=== PATIENT | male | born 1985 | race Caucasian/White ===

== ENCOUNTER 2025-10-01 06:56 | Inpatient (IN) | payer MEDICAID, OTHER ==
[~2025-10-01] VITALS: Ht 175.3 cm; Wt 105.8 kg
--- NOTE | 2025-10-01 07:31 | ED.PDOC ---
General HPI Comments 39 year old male PMHx kdarthur stones presents to the ED with a chief complaint of abdominal pain onset today (10/01/25) around 02:00. Patient states he woke up experiencing lower abdominal pain/pelvic pain, described as a sharp pain. Patient states he has experienced kidney stones in the past, pain is different. Denies nausea, vomiting, diarrhea, blood in stool, melena, hematemesis, dysuria, hematuria, fever, chills. No other symptoms or modifying factors present at this time. Chief Complaint: Abdominal Pain Time Seen by MD: 07:25 Primary Care Provider: DENIES Reviewed notes: Medications, Allergies Allergies: Coded Allergies: NO KNOWN ALLERGIES (Unverified , 02/27/13) Information Source: Patient Mode of Arrival: Ambulatory Severity: Moderate Timing: Hours Duration: Since onset Prehospital treatment: None Onset: Spontaneous Symptoms: Other History of: Kidney stone Location: Suprapubic Penile discharge: None Modifying factors: None Past Medical History PAST MEDICAL HISTORY: Kidney Stones Surgical History: Denies all surgeries Family History Family History: Unknown Social History Smoker: Cigarettes Alcohol: Occasionally Drugs: Marijuana Lives In: Homeless Constitutional: denies: chills, diaphoresis, fatigue, fever, malaise, sweats, weakness, others EENTM: denies: blurred vision, double vision, ear bleeding, ear discharge, ear drainage, ear pain, ear ringing, eye pain, eye redness, hearing loss, mouth pain, mouth swelling, nasal discharge, nose bleeding, nose congestion, nose pain, photophobia, tearing, throat pain, throat swelling, voice changes, others Respiratory: denies: cough, hemoptysis, orthopnea, SOB at rest, shortness of breath, SOB with excertion, stridor, wheezing, others Cardiovascular: denies: chest pain, dizzy spells, diaphoresis, Dyspnea on exertion, edema, irregular heart beat, left arm pain, lightheadedness, palpitations, PND, syncope, others Gastrointestinal: reports: abdominal pain (lower abdomen); denies: abdomen distended, blood streaked bowels, constipated, diarrhea, dysphagia, difficulty swallowing, hematemesis, melena, nausea, poor appetite, poor fluid intake, rectal bleeding, rectal pain, vomiting, others Genitourinary: reports: pain (suprapubic); denies: burning, dysuria, flank pain, frequency, hematuria, incontinence, penile discharge, penile sore, testicle pain, testicle swelling, urgency, others Neurological: denies: dizziness, fainting, headache, left sided numbness, left sided weakness, numbness, paresthesia, pre-existing deficit, right sided numbness, right sided weakness, seizure, speech problems, tingling, tremors, weakness, others Musculoskeletal: denies: back pain, gout, joint pain, joint swelling, muscle pain, muscle stiffness, neck pain, others Integumetry: denies: bruises, change in color, change in hair/nails, dryness, laceration, lesions, lumps, rash, wounds, others Allergic/Immunocompromised: denies: Difficulty Healing, Frequent Infections, Hives, Itching, others Hematologic/Lymphatic: denies: anemia, blood clots, easy bleeding, easy bruising, swollen glands, others Endocrine: denies: excessive hunger, excessive sweating, excessive thirst, excessive urination, flushing, intolerance to cold, intolerance to heat, unexplained weight gain, unexplained weight loss, others Psychiatric: denies: anxiety, bipolar disorder, depression, hopeless, panic disorder, schizophrenia, sleepless, suicidal, others All Other Systems: Reviewed and Negative Physical Exam General Appearance: Normal HEENT: Normal ENT Inspection, Pharynx Normal, TMs Normal Neck: Full Range of Motion, Non-Tender, Normal, Normal Inspection Respiratory: Chest Non-Tender, Lungs Clear, No Accessory Muscle Use, No Respiratory Distress, Normal Breath Sounds Cardiovascular: No Edema, No JVD, No Murmur, No Gallop, Normal Peripheral Pulses, Regular Rate/Rhythm Breast Exam: Deferred Gastrointestinal: No Organomegaly, Non Tender, No Pulsatile Mass, Normal Bowel Sounds, Soft Genitalia: Deferred Pelvic: Deferred Rectal: Deferred Extremities: No calf tenderness, Normal capillary refill, Normal inspection, Normal range of motion, Non-tender, No pedal edema Musculoskeletal : Apperance: Normal Neurologic: Alert, windshield installer II-XII nml as Tested, No Motor Deficits, Normal Affect, Normal Mood, No Sensory Deficits Cerebellar Function: Normal Reflexes: Normal Skin: Dry, Normal Color, Warm Lymphatic: No Adenopathy Was a procedure done? Was a procedure done?: No Differential Diagnosis Kidney stone (Female): N/A Kidney stone (Male): N/A Penile/Scrotal: N/A Urinary Problem (Male): Urethritis, Urinary Retention, Urolithiasis, UTI Urinary Problem (Female): N/A X-Ray, Labs, Meds, VS Vital Signs Date Time Temp Pulse Resp B/P (MAP) Pulse Ox O2 Delivery O2 Flow Rate FiO2 10/01/25 09:07 89 18 146/80 (102) 100 10/01/25 09:06 89 18 146/80 10/01/25 08:00 102 16 140/92 10/01/25 07:20 Room Air* 0 21 10/01/25 07:17 98.5 102 16 140/91 (107) 96 98.5 10/01/25 06:58 98.0 112 18 141/85 98 98.0 Lab Test 10/01/25 07:47 10/01/25 07:32 Range/Units Urine Color Yellow Yellow Urine Clarity Clear Clear Urine pH 6.0 5.0-9.0 Urine Specific [place] 1.024 1.001-1.035 Urine Protein Trace H Negative Urine Ketones Trace Negative Urine Blood Trace H Negative /uL Urine Nitrite Negative Negative Urine Bilirubin Negative Negative Urine Urobilinogen 3 H Negative mg/dL Urine Leukocyte Esterase Negative Negative /uL Urine RBC 4 0 - 3 /hpf Urine Microscopic WBC < 1 0-3 /HPF Urine Squamous Epithelial Cells None seen <5 /hpf Urine Bacteria None seen None Seen /hpf Urine Glucose Normal Normal mg/dL White Blood Count 13.0 H 4.4-10.8 10^3/uL Red Blood Count 4.88 4.5-5.90 10^6/uL Hemoglobin 16.0 13.5-17.5 g/dL Hematocrit 45.1 41.0-53.0 % Mean Corpuscular Volume 92.4 80.0-100.0 fL Mean Corpuscular Hemoglobin 32.8 H 28.0-32.0 pg Mean Corpuscular Hemoglobin Concent 35.5 32.0-36.0 g/dL Red Cell Distribution Width 13.5 11.8-14.3 % Platelet Count 202 140-450 10^3/uL Mean Platelet Volume 7.9 6.9-10.8 fL Neutrophils (%) (Auto) 84.2 H 37.0-80.0 % Lymphocytes (%) (Auto) 7.3 L 10.0-50.0 % Monocytes (%) (Auto) 7.6 0.0-12.0 % Eosinophils (%) (Auto) 0.4 0.0-7.0 % Basophils (%) (Auto) 0.5 0.0-2.0 % Neutrophils # (Auto) 10.9 H 1.6-8.6 10 ^3/uL Lymphocytes # (Auto) 0.9 0.4-5.4 10 ^3/uL Monocytes # (Auto) 1.0 0-1.3 10 ^3/uL Eosinophils # (Auto) 0 0-0.8 10 ^3/uL Basophils # (Auto) 0.1 0-0.2 10 ^3/uL Nucleated Red Blood Cells 0.0 % Sodium Level 145 136-145 mmol/L Potassium Level 4.4 3.5-5.1 mmol/L Chloride Level 111 H 98-107 mmol/L Carbon Dioxide Level 26 20-31 mmol/L Anion Gap 8 5-15 Blood Urea Nitrogen 11 9-23 mg/dL Creatinine 1.05 0.700-1.30 mg/dL Glomerular Filtration Rate Calc 91 >90 mL/min BUN/Creatinine Ratio 10.5 10.0-20.0 Serum Glucose 122 H 74-106 mg/dL Calcium Level 9.0 8.7-10.4 mg/dL Current Medications Medications (Trade) Dose Ordered Sig/Aristeo Route Start Time Stop Time Status Last Admin Sodium Chloride 1,000 ml @ 1,000 mls/hr Q1H ONCE IV 10/01/25 07:30 10/01/25 08:29 DC 10/01/25 08:00 Morphine Sulfate 4 mg ONCE ONCE IV 10/01/25 07:30 10/01/25 07:31 DC 10/01/25 08:00 Ondansetron HCl (Zofran) 4 mg ONCE ONCE IV 10/01/25 07:30 10/01/25 07:31 DC 10/01/25 08:00 Time of 1ST Reevaluation: 07:55 Reevaluation 1ST: Unchanged Patient Education/Counseling: Diagnosis, Treatment, Prognosis Family Education/Counseling: No Family Present SEPSIS Sepsis Screen Date sepsis recognized/suspect: Oct 01, 2025 Time Sepsis recognized/suspect: 07 Recent Procedure: No On Antibiotic Therapy: No Respiratory Rate >20: No Heart Rate >90: No Temp<36 C (96.8 F) or >38.3 C: No SBP <90 or MAP <65 mmHG: No New Acute Mental Status Change: No Is the patient on CPAP, BIPAP,: No Physician Orders Ct Ab Pel With Iv Con Only (10/01/25 08:41) Cefazolin Ancef (10/01/25 10:15) Metronidazole Ivpb Flagyl (10/01/25 10:15) Lactic Acid W/ Reflex Order (10/01/25 10:12) Blood Culture (10/01/25 10:12) NS (10/01/25 10:15) * Surgical Consult (10/01/25 ) Vital Signs Date Time Temp Pulse Resp B/P (MAP) Pulse Ox O2 Delivery O2 Flow Rate FiO2 10/01/25 09:07 89 18 146/80 (102) 100 10/01/25 09:06 89 18 146/80 10/01/25 08:00 102 16 140/92 10/01/25 07:20 Room Air* 0 21 10/01/25 07:17 98.5 102 16 140/91 (107) 96 98.5 10/01/25 06:58 98.0 112 18 141/85 98 98.0 Laboratory Tests Test 10/01/25 07:32 White Blood Count 13.0 10^3/uL (4.4-10.8) H Medications Medications Dose Ordered Sig/Aristeo Route Start Time Stop Time Status Last Admin Dose Admin Morphine Sulfate 4 mg ONCE ONCE IV 10/01/25 07:30 10/01/25 07:31 DC 10/01/25 08:00 Ondansetron HCl 4 mg ONCE ONCE IV 10/01/25 07:30 10/01/25 07:31 DC 10/01/25 08:00 Sodium Chloride 1,000 ml @ 1,000 mls/hr Q1H ONCE IV 10/01/25 07:30 10/01/25 08:29 DC 10/01/25 08:00 Departure 1 Departure Time of Disposition: 10:16 (Patient presented with abdominal pain that was concerning for possible appendicits, gastritis, cholecystitis, colitis, gastroenteritis, sbo, or orther possible surgical emergency. Data: 1. I ordered and reviewed the result of at least 3 labs including a CBC, BMP, and Urinalysis. 2. I independently interpreted the following tests: CT Abdomen and Pelvis is concerning for diverticulitis with a microperforation .Risk:This patient has a high risk of morbidity due to further diagnostic testing or treatment and may suffer from an acute abdominal process disorder. Workup reveals diverticulitis with microperforation and patient should be admitted for further workup. and possible expert consultation. ) Impression: Primary Impression: Diverticulitis of intestine Qualified Codes: K57.20 - Diverticulitis of large intestine with perforation and abscess without bleeding Disposition: ADMITTED INPATIENT Admit to: Tele Condition: Guarded Critical Care Note Critical Care Time?: Yes Critical care comment: Intractable abdominal pain Authorized and Performed by: Gloria Maya MD Total critical care time: Approximately 39 minutes Due to a high probability of clinically significant, life threatening deterioration, the patient required my highest level of preparedness to interv sherri emergently and I personally spent this critical care time directly and personally managing the patient. This critical care time included obtaining a history; examining the patient; pulse oximetry; ordering and review of studies; arranging urgent treatment with development of a management plan; evaluation of patient's response to treatment; frequent reassessment; and, discussions with other providers. This critical care time was performed to assess and manage the high probability of imminent, life-threatening deterioration that could result in multi-organ failure. It was exclusive of separately billable procedures and treating other patients and teaching time. Please see my other sections and the rest of the note for further information on patient assessment and treatment. Stability Stability form required: No Heart Score Heart Score: Heart Score Response (Comments) Value History N/A 0 EKG N/A 0 Age N/A 0 Risk Factors N/A 0 Troponin N/A 0 Total 0 I personally scribed for GLORIA MAYA MD ([email or web address]) on 10/01/25 at 07:31. Elec tronically submitted by Svitlana Angel ([email or web address]). GLORIA MAYA MD Oct 01, 2025 07:31
[2025-10-01 07:56] LABS: Urine Protein, UAD TRACE (Negative)
[2025-10-01 07:59] LABS: Hematocrit 45.1 % (41.0-53.0); Hemoglobin 16.0 g/dL (13.5-17.5); Mean Corpuscular Hemoglobin 32.8 pg (28.0-32.0); Mean Corpuscular Volume 92.4 fL (80.0-100.0); Nucleated Red Blood Cells % 0.0 %
[2025-10-01] MEDS: SODIUM CHLORIDE 0.9% 1,000 ML IV ONE ×2 (08:00→10:45)
[2025-10-01] MEDS: MORPHINE SULFATE 4 MG/ML SYR/VIAL IV ONE ×2 (08:00→11:08)
[2025-10-01] MEDS: ONDANSETRON HCL 4 MG/2 ML VIAL IV ONE (08:00)
[2025-10-01 08:02] LABS: Potassium 4.4 mmol/L (3.5-5.1); Sodium 145 mmol/L (136-145)
[2025-10-01 08:03] LABS: Anion Gap 8 (5-15); Calcium 9.0 mg/dL (8.7-10.4); Carbon Dioxide 26 mmol/L (20-31)
[2025-10-01 08:04] LABS: Chloride 111 mmol/L (98-107)
[2025-10-01 08:09] LABS: BUN/Creatinine Ratio 10.5 (10.0-20.0); Blood Urea Nitrogen 11 mg/dL (9-23)
[2025-10-01 08:10] LABS: Glucose 122 mg/dL (74-106)
[2025-10-01] MEDS: IOHEXOL 300 MG/ML 100ML BOTTLE IJ ONE (10:02)
--- NOTE | 2025-10-01 10:09 | DVH ---
Exam: CT CT AB PEL WITH IV CON ONLY History: Lower abdominal pain. Comparison Study: None Contrast: Type of contrast: Omnipaque 300 Contrast injected: 100 mL Contrast wasted: 0 TECHNIQUE: CT of the abdomen pelvis was performed with intravenous contrast. Coronal sagittal reformatted images are submitted. Radiation Dose Information: CT Dose: CTDI volume is 22.5 mGy. Dose-length product is 1482.4 mGy*cm FINDINGS: Lung Bases: No acute or significant lung base finding. Normal heart size. No pleural or pericardial effusion. Liver: The liver is normal in size. Diffusely hypoattenuating liver parenchyma consistent with hepatic steatosis. No focal lesions. Normal hepatic vascular enhancement. Gallbladder and Biliary Tree: The gallbladder is unremarkable. No biliary ductal dilatation. Spleen: Unremarkable Pancreas: The pancreas is normal in appearance without focal lesions or abnormal enhancement. Adrenal Glands: Unremarkable Kidneys: Symmetric enhancement of the kidneys. 4 mm nonobstructive calculus in the midpole of the left kidney and 5 mm calculus upper pole of the left kidney. No hydronephrosis. Kidneys enhance symmetrically. Right renal cyst noted. Bladder: Unremarkable Bowel: The stomach is grossly normal in appearance. The small bowel is normal in caliber. Sigmoid colon diverticulosis. Mucosal thickening in the sigmoid colon with fat stranding consistent with acute diverticulitis. Small foci of gas adjacent to the inflamed colon consistent with contained perforation. No acute appendicitis. Peritoneum. No ascites. Pericolonic fat stranding and edema noted. Microperforation adjacent to the sigmoid colon as described above. No large volume pneumoperitoneum. No drainable fluid collection. Lymphadenopathy: No mesenteric, retroperitoneal or periportal lymphadenopathy. Abdominal Wall and Mesentery: Unremarkable. Vasculature: The visualized abdominal aorta is normal in size and caliber. Abdominal and pelvic vessels demonstrate normal enhancement. Pelvic Organs: Unremarkable Musculoskeletal: No aggressive focal bony lesions, acute fractures or dislocation. Soft tissues: Unremarkable. IMPRESSION: 1. Acute sigmoid diverticulitis with microperforation. No drainable fluid collection. 2. Hepatic steatosis. 3. Nonobstructive left renal calculi.
[2025-10-01 10:25] VITALS: PULSE 87; RESP 13; O2SAT 96
[2025-10-01] MEDS: ceFAZolin 2 GM/D5W50ml 50 ML IV ONE (10:45)
--- NOTE | 2025-10-01 12:29 | DVHINCON2 ---
Consultation - Surgical Date Seen: Oct 01, 2025 Referring Physician Reason for Consultation Diverticulitis History of Present Illness History of Present Illness Mr. Shore is a 39-year-old male who presented to the ED due to lower abdominal pain that has been worsening since last night. Patient states that he was sleeping and the pain woke him up, he thought he only needed to void which she did but the pain never went away. Pain has kept on getting worse and is achy. He has never had this issue before. Before all this happened patient was feeling very well eating okay having regular daily soft bowel movements, no urinary changes. Denies fevers, chills, blood in the stool, past colonoscopy or endoscopy, personal or family history of GI malignancies. Denies weight loss or loss of appetite. Past Medical/Surgical History Past Medical/Surgical History Past medical history denies past surgical history right ankle surgery Family and Social History Family and Social History ETOH occasional T Ob half a pack to 1 pack of cigarettes per day for approximately 30 years Drugs occasional marijuana Allergies and medications Allergies: Coded Allergies: NO KNOWN ALLERGIES (Unverified , 02/27/13) Review of systems Review of Systems: HEENT:Normal, CVS:Normal, RESPIRATORY:Normal, GI:Abnormal (See HPI), :Normal, MSK:Normal, NEURO:Normal Examination Vital signs Vital Signs Date Time Temp Pulse Resp B/P (MAP) Pulse Ox O2 Delivery O2 Flow Rate FiO2 10/01/25 11:39 95 13 165/97 10/01/25 10:25 98.4 96 98.4 10/01/25 10:25 Room Air* 0 21 Laboratory Labs Test 10/01/25 10:25 10/01/25 07:47 10/01/25 07:32 Range/Units Lactic Acid Level 0.9 0.4-2.0 mmol/L Urine Color Yellow Yellow Urine Clarity Clear Clear Urine pH 6.0 5.0-9.0 Urine Specific [place] 1.024 1.001-1.035 Urine Protein Trace H Negative Urine Ketones Trace Negative Urine Blood Trace H Negative /uL Urine Nitrite Negative Negative Urine Bilirubin Negative Negative Urine Urobilinogen 3 H Negative mg/dL Urine Leukocyte Esterase Negative Negative /uL Urine RBC 4 0 - 3 /hpf Urine Microscopic WBC < 1 0-3 /HPF Urine Squamous Epithelial Cells None seen <5 /hpf Urine Bacteria None seen None Seen /hpf Urine Glucose Normal Normal mg/dL White Blood Count 13.0 H 4.4-10.8 10^3/uL Red Blood Count 4.88 4.5-5.90 10^6/uL Hemoglobin 16.0 13.5-17.5 g/dL Hematocrit 45.1 41.0-53.0 % Mean Corpuscular Volume 92.4 80.0-100.0 fL Mean Corpuscular Hemoglobin 32.8 H 28.0-32.0 pg Mean Corpuscular Hemoglobin Concent 35.5 32.0-36.0 g/dL Red Cell Distribution Width 13.5 11.8-14.3 % Platelet Count 202 140-450 10^3/uL Mean Platelet Volume 7.9 6.9-10.8 fL Neutrophils (%) (Auto) 84.2 H 37.0-80.0 % Lymphocytes (%) (Auto) 7.3 L 10.0-50.0 % Monocytes (%) (Auto) 7.6 0.0-12.0 % Eosinophils (%) (Auto) 0.4 0.0-7.0 % Basophils (%) (Auto) 0.5 0.0-2.0 % Neutrophils # (Auto) 10.9 H 1.6-8.6 10 ^3/uL Lymphocytes # (Auto) 0.9 0.4-5.4 10 ^3/uL Monocytes # (Auto) 1.0 0-1.3 10 ^3/uL Eosinophils # (Auto) 0 0-0.8 10 ^3/uL Basophils # (Auto) 0.1 0-0.2 10 ^3/uL Nucleated Red Blood Cells 0.0 % Sodium Level 145 136-145 mmol/L Potassium Level 4.4 3.5-5.1 mmol/L Chloride Level 111 H 98-107 mmol/L Carbon Dioxide Level 26 20-31 mmol/L Anion Gap 8 5-15 Blood Urea Nitrogen 11 9-23 mg/dL Creatinine 1.05 0.700-1.30 mg/dL Glomerular Filtration Rate Calc 91 >90 mL/min BUN/Creatinine Ratio 10.5 10.0-20.0 Serum Glucose 122 H 74-106 mg/dL Calcium Level 9.0 8.7-10.4 mg/dL Examination: GENERAL:Normal, HEENT:Normal (No icterus), ABDOMEN:Abnormal (Nondistended, no scars, no masses, soft, depressible, suprapubic tenderness, no rebound, no guarding) Problem List/Assessment/Plan Problems: (1) Diverticulitis of intestine Assessment and Plan Mr. Shore is a 39-year-old male who presents with [place] 1 a diverticulitis with microperforation. CT scan shows ebony-sigmoid inflammation, with minimal free air, no abscesses. Patient will benefit from admission, IV antibiotics and NPO at this point. 1. Zosyn every 6 hours 2. NPO except medications, and ice chips. Half a cup of ice chips per shift 3. Okay for minimal sips of water with medications 4. Pain and nausea control 5. Out of bed and ambulate 6. No GI cathartic medications 7. IV fluids 8. A.m. labs Plan discussed with Plan discussed with: Patient Visit Coding Surgery Date of Service if different f: Oct 01, 2025 Billing Provider: NICOLE RICHARDSON MD Surgery Visit Codes: 92742 - INP CONSULT <110 MIN NICOLE RICHARDSON MD Oct 01, 2025 12:29
[2025-10-01] MEDS: SODIUM CHLORIDE 0.9% 1,000 ML IV SCH (12:42)
[2025-10-01] MEDS: KETOROLAC TROMETH 30 MG/ML 1ML VIAL IV SCH (14:00)
[2025-10-01] MEDS: ACETAMINOPHEN 325 MG TAB PO PRN (15:29)
[2025-10-01] MEDS ORDERED: ONDANSETRON HCL 4 MG/2 ML VIAL IV PRN (16:00)
[2025-10-01] MEDS ORDERED: ACETAMINOPHEN 325 MG TAB PO PRN (16:00)
--- NOTE | 2025-10-01 16:16 | DVHHP2 ---
History of Present Illness Reason for Visit: Abdominal pain History of Present Illness Jair Shore is a 39-year-old male with no significant past medical history, who came to the hospital due to abdominal pain. Patient states his abdominal pain woke him up about 0200. He at first thought he just needed to use the bathroom. After urinating his pain did not improve, and continued to worsen prompting him to come to the hospital. Renal/: Other (Kidney stones) Past Surgical History: Other (Jaw surgery, and right leg) Smoke: <1 pack per day ALCOHOL: occassional Drugs: Marijuana Lives: Alone Domestic Violence: Neg Review of Systems Constitutional: No: Fever, Chills, Sweats, Weakness, Malaise, Other Eyes: No: Pain, Vision change, Conjunctivae inflammation, Eyelid inflammation, Other, Redness ENT: No: Ear pain, Ear discharge, Nose pain, Nose discharge, Nose congestion, Mouth pain, Mouth swelling, Throat pain, Throat swelling, Other Respiratory: No: Cough, Dry, Shortness of breath, SOB with excertion, Wheezing, Hemoptysis, Pleuritic Pain, Sputum, Wheezing, Other Cardiovascular: No: Chest Pain, Palpitations, Orthopnea, Paroxysmal Noc. Dyspnea, Edema, Lt Headedness, Other Gastrointestinal: Abdominal Pain; No: Nausea, Vomiting, Diarrhea, Constipation, Melena, Hematochezia, Other Genitourinary: No Dysuria, No Frequency, No Incontinence, No Hematuria, No Retention, No Other Musculoskeletal: No: other, neck pain, shoulder pain, arm pain, back pain, hand pain, leg pain, foot pain Skin: No: Rash, Lesions, Jaundice, Bruising, Other Neurological: No: Weakness, Numbness, Incoordination, Change in speech, Confusion, Seizures, Other Allergies: Coded Allergies: NO KNOWN ALLERGIES (Unverified , 02/27/13) Medications Current Medications Medications Dose Ordered Sig/Aristeo Route Start Time Stop Time Status Last Admin Dose Admin Piperacillin Sod/ Tazobactam Sod 100 ml @ 100 mls/hr Q6HR IV 10/01/25 18:00 Acetaminophen 650 mg Q6HR PO 10/01/25 18:00 Ketorolac Tromethamine 15 mg Q8HR IV 10/01/25 14:00 10/06/25 13:59 Acetaminophen/ Hydrocodone Bitart 1 tab Q4HR PRN PO 10/01/25 12:30 Acetaminophen/ Hydrocodone Bitart 1 tab Q4HR PRN PO 10/01/25 12:30 Sodium Chloride 1,000 ml @ 150 mls/hr Q6H40M IV 10/01/25 12:30 10/01/25 12:42 150 MLS/HR Acetaminophen 650 mg ONCE PRN PO 10/01/25 15:00 10/01/25 15:29 650 MG Exam Vital Signs Vital Signs Date Time Temp Pulse Resp B/P (MAP) Pulse Ox O2 Delivery O2 Flow Rate FiO2 10/01/25 15:29 101.5 10/01/25 14:35 99 27 144/89 (107) 95 10/01/25 10:25 Room Air* 0 21 General Appearance: Alert, Oriented X3, Cooperative, moderate distress HEENT: Atraumatic, PERRLA Respiratory: Clear to auscultation, Normal air movement Cardiovascular: Normal S1, Normal S2, Other (ST) Abdominal: Normal bowel sounds, Soft, Other (Lower abdomen tenderness) Extremities: No clubbing, No cyanosis, No edema, Normal pulses, No tenderness/swelling Skin: No rashes, No breakdown, No significant lesion Neuro: Normal gait, Normal speech, Strength at 5/5 X4 ext, Normal tone Psych/Mental Status: Mood NL Labs/Xrays Labs Test 10/01/25 10:25 10/01/25 07:47 10/01/25 07:32 Range/Units Lactic Acid Level 0.9 0.4-2.0 mmol/L Urine Color Yellow Yellow Urine Clarity Clear Clear Urine pH 6.0 5.0-9.0 Urine Specific [place] 1.024 1.001-1.035 Urine Protein Trace H Negative Urine Ketones Trace Negative Urine Blood Trace H Negative /uL Urine Nitrite Negative Negative Urine Bilirubin Negative Negative Urine Urobilinogen 3 H Negative mg/dL Urine Leukocyte Esterase Negative Negative /uL Urine RBC 4 0 - 3 /hpf Urine Microscopic WBC < 1 0-3 /HPF Urine Squamous Epithelial Cells None seen <5 /hpf Urine Bacteria None seen None Seen /hpf Urine Glucose Normal Normal mg/dL White Blood Count 13.0 H 4.4-10.8 10^3/uL Red Blood Count 4.88 4.5-5.90 10^6/uL Hemoglobin 16.0 13.5-17.5 g/dL Hematocrit 45.1 41.0-53.0 % Mean Corpuscular Volume 92.4 80.0-100.0 fL Mean Corpuscular Hemoglobin 32.8 H 28.0-32.0 pg Mean Corpuscular Hemoglobin Concent 35.5 32.0-36.0 g/dL Red Cell Distribution Width 13.5 11.8-14.3 % Platelet Count 202 140-450 10^3/uL Mean Platelet Volume 7.9 6.9-10.8 fL Neutrophils (%) (Auto) 84.2 H 37.0-80.0 % Lymphocytes (%) (Auto) 7.3 L 10.0-50.0 % Monocytes (%) (Auto) 7.6 0.0-12.0 % Eosinophils (%) (Auto) 0.4 0.0-7.0 % Basophils (%) (Auto) 0.5 0.0-2.0 % Neutrophils # (Auto) 10.9 H 1.6-8.6 10 ^3/uL Lymphocytes # (Auto) 0.9 0.4-5.4 10 ^3/uL Monocytes # (Auto) 1.0 0-1.3 10 ^3/uL Eosinophils # (Auto) 0 0-0.8 10 ^3/uL Basophils # (Auto) 0.1 0-0.2 10 ^3/uL Nucleated Red Blood Cells 0.0 % Sodium Level 145 136-145 mmol/L Potassium Level 4.4 3.5-5.1 mmol/L Chloride Level 111 H 98-107 mmol/L Carbon Dioxide Level 26 20-31 mmol/L Anion Gap 8 5-15 Blood Urea Nitrogen 11 9-23 mg/dL Creatinine 1.05 0.700-1.30 mg/dL Glomerular Filtration Rate Calc 91 >90 mL/min BUN/Creatinine Ratio 10.5 10.0-20.0 Serum Glucose 122 H 74-106 mg/dL Calcium Level 9.0 8.7-10.4 mg/dL ADDENDUM # 1 Critical result: Acute sigmoid diverticulitis with contained perforation. Findings discussed with Dr. Maya on 10/01/2025 at 1:[address] Canales, with acknowledged receipt and understanding of the findings. ORIGINAL REPORT Exam: CT CT AB PEL WITH IV CON ONLY FINDINGS: Lung Bases: No acute or significant lung base finding. Normal heart size. No pleural or pericardial effusion. Liver: The liver is normal in size. Diffusely hypoattenuating liver parenchyma consistent with hepatic steatosis. No focal lesions. Normal hepatic vascular enhancement. Gallbladder and Biliary Tree: The gallbladder is unremarkable. No biliary ductal dilatation. Spleen: Unremarkable Pancreas: The pancreas is normal in appearance without focal lesions or abnormal enhancement. Adrenal Glands: Unremarkable Kidneys: Symmetric enhancement of the kidneys. 4 mm nonobstructive calculus in the midpole of the left kidney and 5 mm calculus upper pole of the left kidney. No hydronephrosis. Kidneys enhance symmetrically. Right renal cyst noted. Bladder: Unremarkable Bowel: The stomach is grossly normal in appearance. The small bowel is normal in caliber. Sigmoid colon diverticulosis. Mucosal thickening in the sigmoid colon with fat stranding consistent with acute diverticulitis. Small foci of gas adjacent to the inflamed colon consistent with contained perforation. No acute appendicitis. Peritoneum. No ascites. Pericolonic fat stranding and edema noted. Microper foration adjacent to the sigmoid colon as described above. No large volume pneumoperitoneum. No drainable fluid collection. Lymphadenopathy: No mesenteric, retroperitoneal or periportal lymphadenopathy. Abdominal Wall and Mesentery: Unremarkable. Vasculature: The visualized abdominal aorta is normal in size and caliber. Abdominal and pelvic vessels demonstrate normal enhancement. Pelvic Organs: Unremarkable Musculoskeletal: No aggressive focal bony lesions, acute fractures or dislocation. Soft tissues: Unremarkable. IMPRESSION: 1. Acute sigmoid diverticulitis with microperforation. No drainable fluid collection. 2. Hepatic steatosis. 3. Nonobstructive left renal calculi. SEPSIS Sepsis Screen Date sepsis recognized/suspect: Oct 01, 2025 Time Sepsis recognized/suspect: 1030 Recent Procedure: No On Antibiotic Therapy: No Respiratory Rate >20: No Heart Rate >90: No Temp<36 C (96.8 F) or >38.3 C: No SBP <90 or MAP <65 mmHG: No New Acute Mental Status Change: No Is the patient on CPAP, BIPAP,: No Physician Orders Ct Ab Pel With Iv Con Only (10/01/25 08:41) Blood Culture (10/01/25 10:12) * Surgical Consult (10/01/25 ) Piperacillin-Tazo 4.5gm (Zosyn 4.5gm/100 (10/01/25 18:00) Acetaminophen Tablet (Tylenol Tablet) (10/01/25 18:00) Ketorolac Injection (Toradol Injection) (10/01/25 14:00) Hydrocodone-Acet 5/325mg Tab ([place] 5/32 (10/01/25 12:30) Hydrocodone-Acet 10/325mg Tab ([place] 10/ (10/01/25 12:30) Npo Except For Medications (10/01/25 12:16) Npo (Nothing By Mouth) Diet (10/01/25 Lunch) Communication Order (10/01/25 12:16) Complete Blood Count (10/02/25 04:00) Comprehensive Metabolic Panel (10/02/25 04:00) Sodium Chloride 0.9% (10/01/25 12:30) Acetaminophen Tablet (Tylenol Tablet) (10/01/25 15:00) Vital Signs Date Time Temp Pulse Resp B/P (MAP) Pulse Ox O2 Delivery O2 Flow Rate FiO2 10/01/25 15:29 101.5 10/01/25 14:35 101.5 99 27 144/89 (107) 95 101.5 10/01/25 13:17 100 21 140/76 (97) 95 10/01/25 12:25 95 20 140/76 (97) 97 10/01/25 11:39 95 13 165/97 10/01/25 11:25 90 15 165/97 (119) 95 10/01/25 11:08 86 16 148/100 10/01/25 10:25 98.4 87 14 152/101 (118) 96 98.4 10/01/25 10:25 87 13 96 Room Air* 0 21 10/01/25 09:07 89 18 146/80 (102) 100 10/01/25 09:06 89 18 146/80 10/01/25 08:00 102 16 140/92 Laboratory Tests Test 10/01/25 07:32 10/01/25 10:25 White Blood Count 13.0 10^3/uL (4.4-10.8) H Lactic Acid Level 0.9 mmol/L (0.4-2.0) Medications Medications Dose Ordered Sig/Aristeo Route Start Time Stop Time Status Last Admin Dose Admin Acetaminophen 650 mg ONCE PRN PO 10/01/25 15:00 10/01/25 15:29 650 MG Cefazolin Sodium/ Dextrose 50 ml @ 50 mls/hr ONCE ONCE IV 10/01/25 10:15 10/01/25 11:14 DC 10/01/25 10:45 50 MLS/HR Metronidazole 100 ml @ 100 mls/hr ONCE ONCE IV 10/01/25 10:15 10/01/25 11:14 DC 10/01/25 11:13 100 MLS/HR Morphine Sulfate 4 mg ONCE ONCE IV 10/01/25 07:30 10/01/25 07:31 DC 10/01/25 08:00 4 MG Morphine Sulfate 4 mg ONCE ONCE IV 10/01/25 10:30 10/01/25 10:31 DC 10/01/25 11:08 4 MG Ondansetron HCl 4 mg ONCE ONCE IV 10/01/25 07:30 10/01/25 07:31 DC 10/01/25 08:00 4 MG Sodium Chloride 1,000 ml @ 150 mls/hr Q6H40M IV 10/01/25 12:30 10/01/25 12:42 150 MLS/HR Sodium Chloride 1,000 ml @ 1,000 mls/hr Q1H ONCE IV 10/01/25 07:30 10/01/25 08:29 DC 10/01/25 08:00 1,000 MLS/HR Sodium Chloride 1,000 ml @ 1,000 mls/hr Q1H ONCE IV 10/01/25 10:15 10/01/25 11:14 DC 10/01/25 10:45 1,000 MLS/HR Assessment/Plan Assessment/Plan Assessment: Diverticulitis of intestine, Contained Perforation, Leukocytosis, Febrile, Left renal calculi, Plan: Admit to Med-Surg, Surgical consult, IV antibiotics, IV hydration, NPO, Blood cultures, Plan discussed with: Patient Date of Service: Oct 01, 2025 Billing Provider: HERMINIA CH Common Visit Codes: [id number] INP/OBS CARE (HIGH) HERMINIA CH Oct 01, 2025 16:16
[2025-10-01 17:33] VITALS: BP 117/81; PULSE 94; RESP 17; TEMP 98.9; O2SAT 96
[2025-10-01 17:42] VITALS: BP 117/81; PULSE 94; RESP 17; TEMP 98.9; O2SAT 96
[2025-10-01] MEDS: ACETAMINOPHEN 325 MG TAB PO SCH (18:00)
[2025-10-01 20:00] VITALS: PULSE 86; RESP 19; O2SAT 95
[2025-10-01] MEDS: HYDROcodone-ACET 10/325MG TAB PO PRN (20:26)
[2025-10-01] MEDS: PIPERACILLIN-TAZO 4.5GM 100 ML IV SCH (20:27)
[2025-10-01 21:06] VITALS: BP 148/88; PULSE 94; RESP 20; TEMP 99.1; O2SAT 98
[2025-10-02] VITALS (8 sets, daily range): BP systolic 134–155; BP diastolic 81–90; PULSE 81–87; RESP 18–20; TEMP 98.1–98.9; O2SAT 95–98
[2025-10-02 05:23] LABS: Hematocrit 38.3 % (41.0-53.0); Hemoglobin 13.5 g/dL (13.5-17.5); Mean Corpuscular Hemoglobin 33.0 pg (28.0-32.0); Mean Corpuscular Volume 93.6 fL (80.0-100.0); Nucleated Red Blood Cells % 0.1 %
[2025-10-02 05:43] LABS: Alanine Aminotransferase 14 U/L (7-40); Albumin 3.7 g/dL (3.2-4.8); Alkaline Phosphatase 73 U/L (46-116); Anion Gap 6 (5-15); BUN/Creatinine Ratio 9.9 (10.0-20.0); Blood Urea Nitrogen 10 mg/dL (9-23); Calcium 8.4 mg/dL (8.7-10.4); Carbon Dioxide 27 mmol/L (20-31); Chloride 108 mmol/L (98-107); Glucose 100 mg/dL (74-106); Potassium 3.7 mmol/L (3.5-5.1); Sodium 141 mmol/L (136-145); Total Protein 6.1 g/dL (5.7-8.2)
[2025-10-02 05:47] LABS: Bilirubin, Total 1.8 mg/dL (0.2-1.0)
[2025-10-02] MEDS: HYDROcodone-ACET 5/325MG TAB PO PRN (08:37)
--- NOTE | 2025-10-02 12:09 | DVHPN2 ---
Reviewed: H&P Changes from previous H/P or p: No Changes General: Per HPI Eyes: No Pain, No Vision change, No Conjunctivae inflammation, No Eyelid inflammation, No Other, No Redness ENT: No Ear pain, No Ear discharge, No Nose pain, No Nose discharge, No Nose congestion, No Mouth pain, No Mouth swelling, No Throat pain, No Throat swelling, No Other Cardiovascular: No Chest Pain, No Palpitations, No Orthopnea, No Paroxysmal Noc. Dyspnea, No Edema, No Lt Headedness, No Other Respiratory: No Cough, No Dry, No Shortness of breath, No SOB with excertion, No Wheezing, No Hemoptysis, No Pleuritic Pain, No Sputum, No Other Gastrointestinal: No Nausea, No Vomiting; Abdominal Pain; No Diarrhea, No Constipation, No Melena, No Hematochezia, No Other Genitourinary: No Dysuria, No Frequency, No Incontinence, No Hematuria, No Retention, No Other Musculoskeletal: No other, No neck pain, No shoulder pain, No arm pain, No back pain, No hand pain, No leg pain, No foot pain Skin: No Rash, No Lesions, No Jaundice, No Bruising, No Other Objective Vitals Vital Signs Date Time Temp Pulse Resp B/P (MAP) Pulse Ox O2 Delivery O2 Flow Rate FiO2 10/02/25 09:00 98.4 85 19 139/86 (103) 96 98.4 10/02/25 08:00 Room Air* 0 21 Intake/Output Intake and Output 10/02/25 07:00 Intake Total 1150 ml Balance 1150 ml Intake Oral 0 ml IV Total 1150 ml # Voids 3 Exam GEN: Healthy appearing, well-developed, NAD. HEENT: NC/AT; MMM. CV: RRR, no m/r/g. LUNGS: CTAB, no w/r/c. ABD: Decreased bowel sounds, tender to palpation i hypogastrium region EXT: skin Warm, well perfused. no rashes. No clubbing, cyanosis, or edema. NEURO: Ambulating with no limitations. No focal deficits. Medications Current Medications Medications Dose Ordered Sig/Aristeo Route Start Time Stop Time Status Last Admin Dose Admin Piperacillin Sod/ Tazobactam Sod 100 ml @ 100 mls/hr Q6HR IV 10/01/25 18:00 10/02/25 05:39 100 MLS/HR Acetaminophen 650 mg Q6HR PO 10/01/25 18:00 10/02/25 05:40 650 MG Ketorolac Tromethamine 15 mg Q8HR IV 10/01/25 14:00 10/06/25 13:59 10/02/25 05:40 15 MG Acetaminophen/ Hydrocodone Bitart 1 tab Q4HR PRN PO 10/01/25 12:30 10/02/25 08:37 1 TAB Acetaminophen/ Hydrocodone Bitart 1 tab Q4HR PRN PO 10/01/25 12:30 10/01/25 20:26 1 TAB Sodium Chloride 1,000 ml @ 150 mls/hr Q6H40M IV 10/01/25 12:30 10/02/25 08:37 150 MLS/HR Acetaminophen 650 mg ONCE PRN PO 10/01/25 15:00 10/01/25 15:29 650 MG Ondansetron HCl 4 mg Q4HP PRN IV 10/01/25 16:00 Acetaminophen 650 mg Q6HP PRN PO 10/01/25 16:00 Laboratory Results Laboratory Tests 10/02/25 04:34 Chemistry Test 10/02/25 04:34 Albumin 3.7 g/dL (3.2-4.8) Calcium Level 8.4 mg/dL (8.7-10.4) L Total Protein 6.1 g/dL (5.7-8.2) LFT Test 10/02/25 04:34 Alanine Aminotransferase (ALT) 14 U/L (7-40) Alkaline Phosphatase 73 U/L (46-116) Aspartate Amino Transferase (AST) 14 U/L (13-40) Total Bilirubin 1.8 mg/dL (0.2-1.0) H Urinalysis Test 10/01/25 07:47 Urine Color Yellow (Yellow) Urine Clarity Clear (Clear) Urine pH 6.0 (5.0-9.0) Urine Specific [place] 1.024 (1.001-1.035) Urine Protein Trace (Negative) H Urine Ketones Trace (Negative) Urine Blood Trace /uL (Negative) H Urine Nitrite Negative (Negative) Urine Bilirubin Negative (Negative) Urine Urobilinogen 3 mg/dL (Negative) H Urine Leukocyte Esterase Negative /uL (Negative) Urine RBC 4 /hpf (0 - 3) Urine Microscopic WBC < 1 /HPF (0-3) Urine Squamous Epithelial Cells None seen /hpf (<5) Urine Bacteria None seen /hpf (None Seen) Urine Glucose Normal mg/dL (Normal) Microbiology Microbiology Date/Time Source Procedure Growth Status 10/01/25 10:30 Blood Blood Culture - Preliminary NO GROWTH AFTER 24 HOURS OF INCUBATION. Resulted Labs and/or images reviewed: Labs reviewed by me, Image(s) reviewed by me Assessment/Plan Assessment/Plan Jair Shore is a 39-year-old male with no significant past medical history, who came to the hospital due to abdominal pain. Patient states his abdominal pain woke him up about 0200. He at first thought he just needed to use the bathroom. After urinating his pain did not improve, and continued to worsen prompting him to come to the hospital. 10/02: Patient presenting with abdominal pain CT showing acute sigmoid diverticulitis with contained perforation. Surgery consulted. IV antibiotics. IV fluids.npo, IV antibiotics Zosyn. diagnosis: Sepsis due to below Diverticulitis of intestine, complicated with contained Perforation, Hyperbilirubinemia Febrile episodes Tachycardia Tachypnea Neutrophilia Leukocytosis, Febrile, Left renal calculi, Plan: Pain control PRN IV antibiotics IV fluids Surgery consult, appreciate follow IV antibiotics Zosyn NPO Prn analgesia Med surge Full code Plan discussed with: Patient Date of Service: Oct 02, 2025 Billing Provider: LATRELL AJ MD Common Visit Codes: [id number] INP/OBS CARE(HIGH) LATRELL AJ MD Oct 02, 2025 12:09
[2025-10-02] MEDS: D5W/SOD CHL 0.45% 1,000 ML IV ONE (15:15)
--- NOTE | 2025-10-02 16:30 | DVHPN2 ---
Progress Note - Surgical Date Seen: Oct 02, 2025 Post op day Post op day: 0 Subjective Patient reports: No new complaints (Patient states pain is about the same, no bowel movement, 1 febrile episode yesterday) Review of Systems: Deferred Objective Vital signs Vital Sign Date Time Temp Pulse Resp B/P (MAP) Pulse Ox O2 Delivery O2 Flow Rate FiO2 10/02/25 09:00 98.4 85 19 139/86 (103) 96 98.4 10/02/25 08:00 Room Air* 0 21 Total Intake and Output 10/01/25 10/01/25 10/02/25 15:00 23:00 07:00 Intake Total 1150 ml 0 ml Balance 1150 ml 0 ml Medications Current Medications Medications Dose Ordered Sig/Aristeo Route Start Time Stop Time Status Last Admin Dose Admin Piperacillin Sod/ Tazobactam Sod 100 ml @ 100 mls/hr Q6HR IV 10/01/25 18:00 10/02/25 13:35 100 MLS/HR Acetaminophen 650 mg Q6HR PO 10/01/25 18:00 10/02/25 13:35 650 MG Ketorolac Tromethamine 15 mg Q8HR IV 10/01/25 14:00 10/06/25 13:59 10/02/25 14:36 15 MG Acetaminophen/ Hydrocodone Bitart 1 tab Q4HR PRN PO 10/01/25 12:30 10/02/25 08:37 1 TAB Acetaminophen/ Hydrocodone Bitart 1 tab Q4HR PRN PO 10/01/25 12:30 10/01/25 20:26 1 TAB Acetaminophen 650 mg ONCE PRN PO 10/01/25 15:00 10/01/25 15:29 650 MG Ondansetron HCl 4 mg Q4HP PRN IV 10/01/25 16:00 Acetaminophen 650 mg Q6HP PRN PO 10/01/25 16:00 Laboratory Laboratory Tests 10/02/25 04:34 Test 10/02/25 04:34 Range/Units Serum Glucose 100 74-106 mg/dL Microbiology Date/Time Source Procedure Growth Status 10/01/25 10:30 Blood Blood Culture - Preliminary NO GROWTH AFTER 24 HOURS OF INCUBATION. Resulted Examination: GENERAL:Normal, ABDOMEN:Normal (Nondistended, soft, depressible, mild suprapubic tenderness) Labs and/or images reviewed: Labs reviewed by me (Leukocytosis 14 from 13) Problem List/Assessment/Plan Problems: (1) Diverticulitis of intestine Assessment and Plan Mr. Shore is a 39-year-old male who presents with [place] 1 a diverticulitis with microperforation. CT scan shows ebony-sigmoid inflammation, with minimal free air, no abscesses. Patient will benefit from admission, IV antibiotics and NPO at this point. Interval: Patient's condition not worsening, no bowel movement yet, we will leave the patient NPO for another day and reassess in the morning. 1. Zosyn every 6 hours 2. NPO except medications, and ice chips. Half a cup of ice chips per shift 3. Okay for minimal sips of water with medications 4. Pain and nausea control 5. Out of bed and ambulate 6. No GI cathartic medications 7. IV fluids 8. A.m. labs Plan discussed with Plan discussed with: Patient Visit Coding Surgery Date of Service if different f: Oct 02, 2025 Billing Provider: NICOLE RICHARDSON MD Surgery Visit Codes: [id number] INP/OBS CARE(HIGH) NICOLE RICHARDSON MD Oct 02, 2025 16:30
[2025-10-03] VITALS (8 sets, daily range): BP systolic 140–154; BP diastolic 86–98; PULSE 72–79; RESP 18–20; TEMP 97.4–98.3; O2SAT 94–99
[2025-10-03 06:42] LABS: Hematocrit 37.0 % (41.0-53.0); Hemoglobin 13.1 g/dL (13.5-17.5); Mean Corpuscular Hemoglobin 32.8 pg (28.0-32.0); Mean Corpuscular Volume 92.5 fL (80.0-100.0); Nucleated Red Blood Cells % 0.0 %
[2025-10-03 06:59] LABS: Alanine Aminotransferase 14 U/L (7-40); Albumin 3.6 g/dL (3.2-4.8); Alkaline Phosphatase 77 U/L (46-116); Anion Gap 8 (5-15); BUN/Creatinine Ratio 14.0 (10.0-20.0); Bilirubin, Total 1.0 mg/dL (0.2-1.0); Blood Urea Nitrogen 12 mg/dL (9-23); Calcium 8.7 mg/dL (8.7-10.4); Carbon Dioxide 26 mmol/L (20-31); Chloride 107 mmol/L (98-107); Glucose 78 mg/dL (74-106); Potassium 3.7 mmol/L (3.5-5.1); Sodium 141 mmol/L (136-145); Total Protein 6.3 g/dL (5.7-8.2)
--- NOTE | 2025-10-03 10:10 | DVHPN2 ---
Progress Note - Surgical Date Seen: Oct 03, 2025 Post op day Post op day: 0 Subjective Patient reports: No new complaints (Patient states the pain has slightly improved, not getting worse, he is afebrile with vital stable, he is feeling very hungry today, he is passing flatus) Review of Systems: Deferred Objective Vital signs Vital Sign Date Time Temp Pulse Resp B/P (MAP) Pulse Ox O2 Delivery O2 Flow Rate FiO2 10/03/25 09:00 98.0 77 20 147/94 (111) 94 98.0 10/02/25 20:00 Room Air* 0 21 Total Intake and Output 10/02/25 10/02/25 10/03/25 15:00 23:00 07:00 Intake Total 100 ml Balance 100 ml Medications Current Medications Medications Dose Ordered Sig/Aritseo Route Start Time Stop Time Status Last Admin Dose Admin Piperacillin Sod/ Tazobactam Sod 100 ml @ 100 mls/hr Q6HR IV 10/01/25 18:00 10/03/25 06:09 100 MLS/HR Acetaminophen 650 mg Q6HR PO 10/01/25 18:00 10/03/25 06:09 650 MG Ketorolac Tromethamine 15 mg Q8HR IV 10/01/25 14:00 10/06/25 13:59 10/03/25 06:09 15 MG Acetaminophen/ Hydrocodone Bitart 1 tab Q4HR PRN PO 10/01/25 12:30 10/02/25 08:37 1 TAB Acetaminophen/ Hydrocodone Bitart 1 tab Q4HR PRN PO 10/01/25 12:30 10/03/25 09:00 1 TAB Acetaminophen 650 mg ONCE PRN PO 10/01/25 15:00 10/01/25 15:29 650 MG Ondansetron HCl 4 mg Q4HP PRN IV 10/01/25 16:00 Acetaminophen 650 mg Q6HP PRN PO 10/01/25 16:00 Laboratory Laboratory Tests 10/03/25 04:49 Test 10/03/25 04:49 Range/Units Serum Glucose 78 74-106 mg/dL Microbiology Date/Time Source Procedure Growth Status 10/01/25 10:30 Blood Blood Culture - Preliminary NO GROWTH AFTER 24 HOURS OF INCUBATION. Resulted Examination: GENERAL:Normal, HEENT:Normal, ABDOMEN:Normal (Nondistended, soft, depressible very mild suprapubic tenderness, no rebound, no guarding) Labs and/or images reviewed: Labs reviewed by me (Leukocytosis down trending 11.2 from 14.1, no other abnormalities) Problem List/Assessment/Plan Assessment and Plan Mr. Shore is a 39-year-old male who presents with [place] 1 a diverticulitis with microperforation. CT scan shows ebony-sigmoid inflammation, with minimal free air, no abscesses. Patient will benefit from admission, IV antibiotics and NPO at this point. Interval: Patient's condition continues to improve, he is passing flatus, no bowel movement yet, he is feeling very hungry today. We will start the patient on a clear liquid diet, please do not advance the diet. I instructed the patient that if he started feeling nauseous or with abdominal pain after eating, he should immediately stop the diet and notify the bedside RN. We will also add Colace, which is a stool softener and not a laxative. 1. Zosyn every 6 hours 2. Clear liquid diet, do not advance 3. Colace 100 mg b.i.d. 4. Pain and nausea control 5. Out of bed and ambulate 6. No GI cathartic medications 7. IV fluids 8. A.m. labs My Orders My Orders Orders - NICOLE RICHARDSON MD Procedure Category Date Status Time Clear Liq Diet DIET 10/03/25 Verified Lunch Docusate Sodium PHA 10/03/25 Verified Capsule (Colace 22:00 Plan discussed with Plan discussed with: Patient Visit Coding Surgery Date of Service if different f: Oct 03, 2025 Billing Provider: NICOLE RICHARDSON MD Surgery Visit Codes: [id number] INP/OBS CARE(HIGH) NICOLE RICHARDSON MD Oct 03, 2025 10:10
--- NOTE | 2025-10-03 14:42 | DVHPN2 ---
Reviewed: H&P Changes from previous H/P or p: No Changes General: Per HPI Eyes: No Pain, No Vision change, No Conjunctivae inflammation, No Eyelid inflammation, No Other, No Redness ENT: No Ear pain, No Ear discharge, No Nose pain, No Nose discharge, No Nose congestion, No Mouth pain, No Mouth swelling, No Throat pain, No Throat swelling, No Other Cardiovascular: No Chest Pain, No Palpitations, No Orthopnea, No Paroxysmal Noc. Dyspnea, No Edema, No Lt Headedness, No Other Respiratory: No Cough, No Dry, No Shortness of breath, No SOB with excertion, No Wheezing, No Hemoptysis, No Pleuritic Pain, No Sputum, No Other Gastrointestinal: No Nausea, No Vomiting; Abdominal Pain; No Diarrhea, No Constipation, No Melena, No Hematochezia, No Other Genitourinary: No Dysuria, No Frequency, No Incontinence, No Hematuria, No Retention, No Other Musculoskeletal: No other, No neck pain, No shoulder pain, No arm pain, No back pain, No hand pain, No leg pain, No foot pain Skin: No Rash, No Lesions, No Jaundice, No Bruising, No Other Objective Vitals Vital Signs Date Time Temp Pulse Resp B/P (MAP) Pulse Ox O2 Delivery O2 Flow Rate FiO2 10/03/25 13:00 98.2 78 20 140/89 (106) 95 98.2 10/03/25 08:00 Room Air* 0 21 Intake/Output Intake and Output 10/03/25 07:00 Intake Total 100 ml Balance 100 ml IV Total 100 ml # Voids 5 Exam GEN: Healthy appearing, well-developed, NAD. HEENT: NC/AT; MMM. CV: RRR, no m/r/g. LUNGS: CTAB, no w/r/c. ABD: Decreased bowel sounds, tender to palpation i hypogastrium region EXT: skin Warm, well perfused. no rashes. No clubbing, cyanosis, or edema. NEURO: Ambulating with no limitations. No focal deficits. Medications Current Medications Medications Dose Ordered Sig/Aristeo Route Start Time Stop Time Status Last Admin Dose Admin Piperacillin Sod/ Tazobactam Sod 100 ml @ 100 mls/hr Q6HR IV 10/01/25 18:00 10/03/25 12:23 100 MLS/HR Acetaminophen 650 mg Q6HR PO 10/01/25 18:00 10/03/25 12:23 650 MG Ketorolac Tromethamine 15 mg Q8HR IV 10/01/25 14:00 10/06/25 13:59 10/03/25 06:09 15 MG Acetaminophen/ Hydrocodone Bitart 1 tab Q4HR PRN PO 10/01/25 12:30 10/02/25 08:37 1 TAB Acetaminophen/ Hydrocodone Bitart 1 tab Q4HR PRN PO 10/01/25 12:30 10/03/25 09:00 1 TAB Acetaminophen 650 mg ONCE PRN PO 10/01/25 15:00 10/01/25 15:29 650 MG Ondansetron HCl 4 mg Q4HP PRN IV 10/01/25 16:00 Acetaminophen 650 mg Q6HP PRN PO 10/01/25 16:00 Docusate Sodium 100 mg BID PO 10/03/25 22:00 Laboratory Results Laboratory Tests 10/03/25 04:49 Chemistry Test 10/03/25 04:49 Albumin 3.6 g/dL (3.2-4.8) Calcium Level 8.7 mg/dL (8.7-10.4) Total Protein 6.3 g/dL (5.7-8.2) LFT Test 10/03/25 04:49 Alanine Aminotransferase (ALT) 14 U/L (7-40) Alkaline Phosphatase 77 U/L (46-116) Aspartate Amino Transferase (AST) 16 U/L (13-40) Total Bilirubin 1.0 mg/dL (0.2-1.0) Urinalysis Test 10/01/25 07:47 Urine Color Yellow (Yellow) Urine Clarity Clear (Clear) Urine pH 6.0 (5.0-9.0) Urine Specific [place] 1.024 (1.001-1.035) Urine Protein Trace (Negative) H Urine Ketones Trace (Negative) Urine Blood Trace /uL (Negative) H Urine Nitrite Negative (Negative) Urine Bilirubin Negative (Negative) Urine Urobilinogen 3 mg/dL (Negative) H Urine Leukocyte Esterase Negative /uL (Negative) Urine RBC 4 /hpf (0 - 3) Urine Microscopic WBC < 1 /HPF (0-3) Urine Squamous Epithelial Cells None seen /hpf (<5) Urine Bacteria None seen /hpf (None Seen) Urine Glucose Normal mg/dL (Normal) Microbiology Microbiology Date/Time Source Procedure Growth Status 10/01/25 10:30 Blood Blood Culture - Preliminary NO GROWTH AFTER 48 HOURS OF INCUBATION. Resulted Labs and/or images reviewed: Labs reviewed by me, Image(s) reviewed by me Assessment/Plan Assessment/Plan Jair Shore is a 39-year-old male with no significant past medical history, who came to the hospital due to abdominal pain. Patient states his abdominal pain woke him up about 0200. He at first thought he just needed to use the bathroom. After urinating his pain did not improve, and continued to worsen prompting him to come to the hospital. 10/02: Patient presenting with abdominal pain CT showing acute sigmoid diverticulitis with contained perforation. Surgery consulted. IV antibiotics. IV fluids.npo, IV antibiotics Zosyn. 10/03: Surgery wants to keep patient on clear liquid diet, do not advance. We will follow up tomorrow morning on tolerance, until then continue IV fluids, IV prn analgesia, IV antibiotics. diagnosis: Sepsis due to below Diverticulitis of intestine, complicated with contained Perforation, Hyperbilirubinemia Febrile episodes Tachycardia Tachypnea Neutrophilia Leukocytosis, Febrile, Left renal calculi, Plan: Pain control PRN IV antibiotics IV fluids Surgery consult, appreciate follow IV antibiotics Zosyn NPO Prn analgesia Med surge Full code Plan discussed with: Patient Date of Service: Oct 03, 2025 Billing Provider: LATRELL AJ MD Common Visit Codes: [id number] INP/OBS CARE(HIGH) LATRELL AJ MD Oct 03, 2025 14:42
[2025-10-03] MEDS: DOCUSATE SOD 100 MG CAP PO SCH (21:50)
[2025-10-04 01:00] VITALS: BP 120/76; PULSE 67; RESP 18; TEMP 96.7; O2SAT 97
[2025-10-04 04:42] VITALS: BP 158/92; PULSE 59; RESP 18; TEMP 97.7; O2SAT 98
[2025-10-04 07:22] LABS: Anion Gap 9 (5-15); Carbon Dioxide 27 mmol/L (20-31); Potassium 3.7 mmol/L (3.5-5.1); Sodium 143 mmol/L (136-145)
[2025-10-04 07:28] LABS: BUN/Creatinine Ratio 12.3 (10.0-20.0); Blood Urea Nitrogen 10 mg/dL (9-23); Calcium 8.5 mg/dL (8.7-10.4); Chloride 107 mmol/L (98-107); Glucose 99 mg/dL (74-106)
[2025-10-04 07:37] LABS: Hematocrit 37.5 % (41.0-53.0); Hemoglobin 13.2 g/dL (13.5-17.5); Mean Corpuscular Hemoglobin 32.2 pg (28.0-32.0); Mean Corpuscular Volume 91.5 fL (80.0-100.0); Nucleated Red Blood Cells % 0.0 %
[2025-10-04 08:00] VITALS: PULSE 62; RESP 18; O2SAT 98
[2025-10-04 09:00] VITALS: BP 164/99; PULSE 62; RESP 18; TEMP 97.4; O2SAT 95
--- NOTE | 2025-10-04 11:16 | DVHPN2 ---
Progress Note - Surgical Date Seen: Oct 04, 2025 Post op day Post op day: 0 Subjective Patient reports: Feels better (Patient doing very well, afebrile, vitals stable, tolerated clear liquid diet, had 2 bowel movements nonbloody) Review of Systems: Deferred Objective Vital signs Vital Sign Date Time Temp Pulse Resp B/P (MAP) Pulse Ox O2 Delivery O2 Flow Rate FiO2 10/04/25 09:00 97.4 62 18 164/99 (120) 95 97.4 10/04/25 08:00 Room Air* 0 21 Total Intake and Output 10/03/25 10/03/25 10/04/25 15:00 23:00 07:00 Intake Total 840 ml 105 ml Output Total 300 ml Balance 840 ml -195 ml Medications Current Medications Medications Dose Ordered Sig/Aristeo Route Start Time Stop Time Status Last Admin Dose Admin Piperacillin Sod/ Tazobactam Sod 100 ml @ 100 mls/hr Q6HR IV 10/01/25 18:00 10/04/25 05:11 100 MLS/HR Acetaminophen 650 mg Q6HR PO 10/01/25 18:00 10/04/25 05:11 650 MG Ketorolac Tromethamine 15 mg Q8HR IV 10/01/25 14:00 10/06/25 13:59 10/04/25 05:11 15 MG Acetaminophen/ Hydrocodone Bitart 1 tab Q4HR PRN PO 10/01/25 12:30 10/03/25 20:14 1 TAB Acetaminophen/ Hydrocodone Bitart 1 tab Q4HR PRN PO 10/01/25 12:30 10/03/25 09:00 1 TAB Acetaminophen 650 mg ONCE PRN PO 10/01/25 15:00 10/01/25 15:29 650 MG Ondansetron HCl 4 mg Q4HP PRN IV 10/01/25 16:00 Acetaminophen 650 mg Q6HP PRN PO 10/01/25 16:00 Docusate Sodium 100 mg BID PO 10/03/25 22:00 10/04/25 09:47 100 MG Laboratory Laboratory Tests 10/04/25 05:16 Test 10/04/25 05:16 Range/Units Serum Glucose 99 74-106 mg/dL Microbiology Date/Time Source Procedure Growth Status 10/01/25 10:30 Blood Blood Culture - Preliminary NO GROWTH AFTER 72 HOURS OF INCUBATION. Resulted Examination: GENERAL:Normal, HEENT:Normal (No icterus), ABDOMEN:Normal (Nondistended, soft, depressible, very minimal suprapubic tenderness, no rebound, no guarding) Labs and/or images reviewed: Labs reviewed by me (No leukocytosis) Problem List/Assessment/Plan Assessment and Plan Mr. Shore is a 39-year-old male who presents with [place] 1 a diverticulitis with microperforation. CT scan shows ebony-sigmoid inflammation, with minimal free air, no abscesses. Patient will benefit from admission, IV antibiotics and NPO at this point. Interval: Patient doing and feeling very well today, tolerated clear liquid diet, had 2 nonbloody bowel movements, states that pain has much improved. No leukocytosis. Patient can be advanced up to a soft diet and if he tolerates he can be discharged home with p.o. antibiotics and Colace. 1. Zosyn every 6 hours 2. Advance diet as tolerated to a soft diet 3. Colace 100 mg b.i.d. 4. If patient tolerates diet advancement, he can be discharged home. 5. Out of bed and ambulate 6. No GI cathartic medications If patient tolerates diet advancement he could be discharged home. Upon discharge: 1. Maintain a soft diet at home for a week, then advance to regular diet 2. Colace 100 mg b.i.d. 3. Augmentin 875-125 mg to complete a total 14 days 4. Educated the patient that he will need a colonoscopy in 2-3 months after symptom resolution 5. Educated the patient that despite he is doing very well, there still a chance of him developing an abscess secondary to the micro perforation and if this were to happen I went over signs and symptoms, and the need to present back to the emergency department. Plan discussed with Plan discussed with: Patient Visit Coding Surgery Date of Service if different f: Oct 04, 2025 Billing Provider: NICOLE RICHARDSON MD Surgery Visit Codes: [id number] INP/OBS CARE(HIGH) NICOLE RICHARDSON MD Oct 04, 2025 11:16
[2025-10-04 13:00] VITALS: BP 147/79; PULSE 81; RESP 20; TEMP 98.7; O2SAT 98
--- NOTE | 2025-10-04 13:03 | DVHPN2 ---
Reviewed: H&P Changes from previous H/P or p: No Changes General: Per HPI Eyes: No Pain, No Vision change, No Conjunctivae inflammation, No Eyelid inflammation, No Other, No Redness ENT: No Ear pain, No Ear discharge, No Nose pain, No Nose discharge, No Nose congestion, No Mouth pain, No Mouth swelling, No Throat pain, No Throat swelling, No Other Cardiovascular: No Chest Pain, No Palpitations, No Orthopnea, No Paroxysmal Noc. Dyspnea, No Edema, No Lt Headedness, No Other Respiratory: No Cough, No Dry, No Shortness of breath, No SOB with excertion, No Wheezing, No Hemoptysis, No Pleuritic Pain, No Sputum, No Other Gastrointestinal: No Nausea, No Vomiting; Abdominal Pain; No Diarrhea, No Constipation, No Melena, No Hematochezia, No Other Genitourinary: No Dysuria, No Frequency, No Incontinence, No Hematuria, No Retention, No Other Musculoskeletal: No other, No neck pain, No shoulder pain, No arm pain, No back pain, No hand pain, No leg pain, No foot pain Skin: No Rash, No Lesions, No Jaundice, No Bruising, No Other Objective Vitals Vital Signs Date Time Temp Pulse Resp B/P (MAP) Pulse Ox O2 Delivery O2 Flow Rate FiO2 10/04/25 09:00 97.4 62 18 164/99 (120) 95 97.4 10/04/25 08:00 Room Air* 0 21 Intake/Output Intake and Output 10/04/25 07:00 Intake Total 945 ml Output Total 300 ml Balance 645 ml Intake Oral 845 ml IV Total 100 ml Output Urine Total 300 ml # Voids 3 Exam GEN: Healthy appearing, well-developed, NAD. HEENT: NC/AT; MMM. CV: RRR, no m/r/g. LUNGS: CTAB, no w/r/c. ABD: Decreased bowel sounds, tender to palpation i hypogastrium region EXT: skin Warm, well perfused. no rashes. No clubbing, cyanosis, or edema. NEURO: Ambulating with no limitations. No focal deficits. Medications Current Medications Medications Dose Ordered Sig/Aristeo Route Start Time Stop Time Status Last Admin Dose Admin Piperacillin Sod/ Tazobactam Sod 100 ml @ 100 mls/hr Q6HR IV 10/01/25 18:00 10/04/25 05:11 100 MLS/HR Acetaminophen 650 mg Q6HR PO 10/01/25 18:00 10/04/25 05:11 650 MG Ketorolac Tromethamine 15 mg Q8HR IV 10/01/25 14:00 10/06/25 13:59 10/04/25 05:11 15 MG Acetaminophen/ Hydrocodone Bitart 1 tab Q4HR PRN PO 10/01/25 12:30 10/03/25 20:14 1 TAB Acetaminophen/ Hydrocodone Bitart 1 tab Q4HR PRN PO 10/01/25 12:30 10/03/25 09:00 1 TAB Acetaminophen 650 mg ONCE PRN PO 10/01/25 15:00 10/01/25 15:29 650 MG Ondansetron HCl 4 mg Q4HP PRN IV 10/01/25 16:00 Acetaminophen 650 mg Q6HP PRN PO 10/01/25 16:00 Docusate Sodium 100 mg BID PO 10/03/25 22:00 10/04/25 09:47 100 MG Laboratory Results Laboratory Tests 10/04/25 05:16 Chemistry Test 10/04/25 05:16 Calcium Level 8.5 mg/dL (8.7-10.4) L Urinalysis Test 10/01/25 07:47 Urine Color Yellow (Yellow) Urine Clarity Clear (Clear) Urine pH 6.0 (5.0-9.0) Urine Specific [place] 1.024 (1.001-1.035) Urine Protein Trace (Negative) H Urine Ketones Trace (Negative) Urine Blood Trace /uL (Negative) H Urine Nitrite Negative (Negative) Urine Bilirubin Negative (Negative) Urine Urobilinogen 3 mg/dL (Negative) H Urine Leukocyte Esterase Negative /uL (Negative) Urine RBC 4 /hpf (0 - 3) Urine Microscopic WBC < 1 /HPF (0-3) Urine Squamous Epithelial Cells None seen /hpf (<5) Urine Bacteria None seen /hpf (None Seen) Urine Glucose Normal mg/dL (Normal) Microbiology Microbiology Date/Time Source Procedure Growth Status 10/01/25 10:30 Blood Blood Culture - Preliminary NO GROWTH AFTER 72 HOURS OF INCUBATION. Resulted Labs and/or images reviewed: Labs reviewed by me, Image(s) reviewed by me Assessment/Plan Assessment/Plan Shore, Christopher is a 39-year-old male with no significant past medical history, who came to the hospital due to abdominal pain. Patient states his abdominal pain woke him up about 0200. He at first thought he just needed to use the bathroom. After urinating his pain did not improve, and continued to worsen prompting him to come to the hospital. 10/02: Patient presenting with abdominal pain CT showing acute sigmoid diverticulitis with contained perforation. Surgery consulted. IV antibiotics. IV fluids.npo, IV antibiotics Zosyn. 10/03: Surgery wants to keep patient on clear liquid diet, do not advance. We will follow up tomorrow morning on tolerance, until then continue IV fluids, IV prn analgesia, IV antibiotics. 10/04: Patient tolerating need nebulizer 2 we will eval., we will advance diet to full liquid diet per surgery. If patient continues to tolerate well verbalized discharge today. Tentative outpatient discharge plan. Augmentin 875 twice daily for 5 days, full liquid diet for 1 week, advance to soft mechanical thereafter. Continue Colace 100 mg twice daily, continue other home medications as below, , prn [place] for pain, prn Zofran for nausea, follow up with PCP outpatient to review discharge 1-2 weeks diagnosis: Sepsis due to below Diverticulitis of intestine, complicated with contained Perforation, Hyperbilirubinemia Febrile episodes Tachycardia Tachypnea Neutrophilia Leukocytosis, Febrile, Left renal calculi, Plan: Pain control PRN IV antibiotics IV fluids Surgery consult, appreciate follow IV antibiotics Zosyn NPO Prn analgesia Med surge Full code Plan discussed with: Patient My Orders Orders - LATRELL AJ MD Procedure Category Date Status Time Full Liq Diet DIET 10/04/25 Transmitted Lunch Date of Service: Oct 04, 2025 Billing Provider: LATRELL AJ MD Common Visit Codes: [id number] INP/OBS CARE(HIGH) LATRELL AJ MD Oct 04, 2025 13:03
[2025-10-04] MEDS ORDERED: AUG875T PO (14:15)
[2025-10-04] MEDS ORDERED: ZOFR4T PO (14:15)
[2025-10-04] MEDS ORDERED: DOCU-94 PO (14:15)
[2025-10-04] MEDS ORDERED: HYDR-4902 PO (14:15)
--- NOTE | 2025-10-04 14:17 | DVHDS2 ---
Discharge Summary Date of Admission Oct 01, 2025 at 15:48 Date of Discharge: Oct 04, 2025 Labs/Diagnostic Data: Laboratory Results Test 10/04/25 05:16 10/03/25 04:49 10/01/25 10:25 10/01/25 07:47 White Blood Count 8.0 10^3/uL (4.4-10.8) Red Blood Count 4.10 10^6/uL (4.5-5.90) Hemoglobin 13.2 g/dL (13.5-17.5) Hematocrit 37.5 % (41.0-53.0) Mean Corpuscular Volume 91.5 fL (80.0-100.0) Mean Corpuscular Hemoglobin 32.2 pg (28.0-32.0) Mean Corpuscular Hemoglobin Concent 35.2 g/dL (32.0-36.0) Red Cell Distribution Width 12.9 % (11.8-14.3) Platelet Count 191 10^3/uL (140-450) Mean Platelet Volume 7.9 fL (6.9-10.8) Neutrophils (%) (Auto) 83.4 % (37.0-80.0) Lymphocytes (%) (Auto) 9.5 % (10.0-50.0) Monocytes (%) (Auto) 5.5 % (0.0-12.0) Eosinophils (%) (Auto) 1.3 % (0.0-7.0) Basophils (%) (Auto) 0.3 % (0.0-2.0) Neutrophils # (Auto) 6.7 10 ^3/uL (1.6-8.6) Lymphocytes # (Auto) 0.8 10 ^3/uL (0.4-5.4) Monocytes # (Auto) 0.4 10 ^3/uL (0-1.3) Eosinophils # (Auto) 0.1 10 ^3/uL (0-0.8) Basophils # (Auto) 0 10 ^3/uL (0-0.2) Nucleated Red Blood Cells 0.0 % Sodium Level 143 mmol/L (136-145) Potassium Level 3.7 mmol/L (3.5-5.1) Chloride Level 107 mmol/L (98-107) Carbon Dioxide Level 27 mmol/L (20-31) Anion Gap 9 (5-15) Blood Urea Nitrogen 10 mg/dL (9-23) Creatinine 0.81 mg/dL (0.700-1.30) Glomerular Filtration Rate Calc 114 mL/min (>90) BUN/Creatinine Ratio 12.3 (10.0-20.0) Serum Glucose 99 mg/dL (74-106) Calcium Level 8.5 mg/dL (8.7-10.4) Total Bilirubin 1.0 mg/dL (0.2-1.0) Aspartate Amino Transferase (AST) 16 U/L (13-40) Alanine Aminotransferase (ALT) 14 U/L (7-40) Alkaline Phosphatase 77 U/L (46-116) Total Protein 6.3 g/dL (5.7-8.2) Albumin 3.6 g/dL (3.2-4.8) Lactic Acid Level 0.9 mmol/L (0.4-2.0) Urine Color Yellow (Yellow) Urine Clarity Clear (Clear) Urine pH 6.0 (5.0-9.0) Urine Specific [place] 1.024 (1.001-1.035) Urine Protein Trace (Negative) Urine Ketones Trace (Negative) Urine Blood Trace /uL (Negative) Urine Nitrite Negative (Negative) Urine Bilirubin Negative (Negative) Urine Urobilinogen 3 mg/dL (Negative) Urine Leukocyte Esterase Negative /uL (Negative) Urine RBC 4 /hpf (0 - 3) Urine Microscopic WBC < 1 /HPF (0-3) Urine Squamous Epithelial Cells None seen /hpf (<5) Urine Bacteria None seen /hpf (None Seen) Urine Glucose Normal mg/dL (Normal) Other Laboratory Tests 10/04/25 05:16 Brief Hx & Hospital Course: Jair Shore is a 39-year-old male with no significant past medical history, who came to the hospital due to abdominal pain. Patient states his abdominal pain woke him up about 0200. He at first thought he just needed to use the bathroom. After urinating his pain did not improve, and continued to worsen prompting him to come to the hospital. 10/02: Patient presenting with abdominal pain CT showing acute sigmoid diverticulitis with contained perforation. Surgery consulted. IV antibiotics. IV fluids.npo, IV antibiotics Zosyn. 10/03: Surgery wants to keep patient on clear liquid diet, do not advance. We will follow up tomorrow morning on tolerance, until then continue IV fluids, IV prn analgesia, IV antibiotics. 10/04: Patient tolerating need nebulizer 2 we will eval., we will advance diet to full liquid diet per surgery. If patient continues to tolerate well verbalized discharge today. Tentative outpatient discharge plan. Augmentin 875 twice daily for 5 days, full liquid diet for 1 week, advance to soft mechanical thereafter. Continue Colace 100 mg twice daily, continue other home medications as below, , prn [place] for pain, prn Zofran for nausea, follow up with PCP outpatient to review discharge 1-2 weeks diagnosis: Sepsis due to below Diverticulitis of intestine, complicated with contained Perforation, Hyperbilirubinemia Febrile episodes Tachycardia Tachypnea Neutrophilia Leukocytosis, Febrile, Left renal calculi, plan: -Augmentin 875 twice daily for 5 days, - full liquid diet for 1 week, advance to soft mechanical thereafter. -Continue Colace 100 mg twice daily, -continue other home medications as below, , -for pain 1st line Tylenol, second-line ibuprofen, and 3rd line prescription as needed [place] for pain, -as needed Zofran for nausea, - follow up with PCP outpatient to review discharge 1-2 weeks Condition at Discharge: Fair Final Diagnosis/Problems List Sepsis due to below Diverticulitis of intestine, complicated with contained Perforation, Hyperbilirubinemia Febrile episodes Tachycardia Tachypnea Neutrophilia Leukocytosis, Febrile, Left renal calculi, Discharge Disposition: Home Discharge Statement: "Patient was advised to return to the ER or call 911 if any headaches, dizziness, shortness of breath, chest pain, abdominal pain, bleeding, fevers, or worsening of medical condition. Patient was counseled about treatment plan, medications, possible side effects, patientverbalized understanding. All questions were answered to the best of my ability. This discharge took greater then 30 minutes in planning, reviewing documentation, counseling the patient, and discussing with other team members." ASSESSMENT ASSESSMENT Assessment Date of Service: Oct 04, 2025 Billing Provider: LATRELL AJ MD Common Visit Codes: [id number] DISCH DAY >30min LATRELL AJ MD Oct 04, 2025 14:17
[2025-10-04 16:46] VITALS: BP 151/87; PULSE 74; RESP 20; TEMP 98.4; O2SAT 99
== END 2025-10-04 17:09 | disposition home or self-care (01) | DRG 720 ==
LOC: ER 06:56 → OVERFLOW 15:48 → WEST WING 17:00
PROVIDERS: ADMIT Student in an Organized Health Care Education/Training Program; ATTEND Student in an Organized Health Care Education/Training Program
DX: A41.9 Sepsis, unspecified organism (principal); K57.20 Diverticulitis of large intestine with perforation and abscess without bleeding; N20.0 Calculus of kidney; F17.210 Nicotine dependence, cigarettes, uncomplicated; E80.6 Other disorders of bilirubin metabolism; Z59.00 Homelessness unspecified; Z79.899 Other long term (current) drug therapy
CPT/HCPCS: 36415; 74177; 80048; 80053; 81001; 83605; 85025; 87040; 96361; 96365; 96366; 96368; 96375; 96376; 99291; G0378; J1885; J2405; J2543; J3490

== ENCOUNTER 2025-10-17 06:37 | Inpatient (IN) | payer MEDICAID ==
[~2025-10-17] VITALS: Ht 175.3 cm; Wt 68.0 kg
[~2025-10-17 06:37] MED LIST: AUG875T PO; DOCU-94 PO; HYDR-4902 PO; ZOFR4T PO
--- NOTE | 2025-10-17 07:24 | ED.PDOC ---
GI ASSESSMENT HPI Comments This is a 39 year old male presenting to the ED with chief complaint of abdominal pain. Patient reports that he has been experiencing LLQ abdominal pain since yesterday. Patient relays that he was recently diagnosed and admitted for diverticulitis 2 weeks ago, but has not followed up with a GI doctor since then. Patient denies any N/V/D, dizziness, fever, chills, or flank pain. Chief Complaint: Abdominal Pain Time Seen by MD: 07:22 Primary Care Provider: SAMMY Reviewed Notes: Nurses Notes, Medications, Allergies Allergies: Coded Allergies: NO KNOWN ALLERGIES (Unverified , 02/27/13) Home Meds Active Scripts Ondansetron Odt 4MG Tab (ZOFRAN PO) 4 Mg Tb, 4 MG PO TIDP PRN, #25 TAB 0 Refills ODT TAB-DISSOLVE IN MOUTH, THEN SWALLOW Prov:LATRELL AJ MD 10/04/25 Hydrocodone-Acetaminophen (Hydrocodone Bitartrate/AC 5-325 mg) 1 Tab Tab, 1 TAB PO TIDP PRN for 7 Days, #21 TAB 0 Refills Prov:LATRELL AJ MD 10/04/25 Docusate Sodium (Colace) 100 Mg Cap, 1 CAP PO BID, #60 CAP Prov:LATRELL AJ MD 10/04/25 Amoxicillin & Pot Clavulanate (AUGMENTIN TABLET) 875 Mg Tb, 875 MG PO BID for 5 Days, #10 TAB Prov:LATRELL AJ MD 10/04/25 Information Source: Patient Mode of Arrival: Ambulatory Timing: Days Duration: Since onset Prehospital treatment: None Quality: Sharp Vomitus: None Stool: Normal Severity: Moderate Recent: None Pain Location: LLQ Modifying Factors: Nothing Associated sign and symptoms: Abdominal Pain Past Medical History PAST MEDICAL HISTORY: Kidney Stones Surgical History: Denies all surgeries Family History Family History: Unknown Social History Smoker: Cigarettes Alcohol: Occasionally Drugs: Marijuana Lives In: Homeless Constitutional: denies: chills, diaphoresis, fatigue, fever, malaise, sweats, weakness, others EENTM: denies: blurred vision, double vision, ear bleeding, ear discharge, ear drainage, ear pain, ear ringing, eye pain, eye redness, hearing loss, mouth marilou n, mouth swelling, nasal discharge, nose bleeding, nose congestion, nose pain, photophobia, tearing, throat pain, throat swelling, voice changes, others Respiratory: denies: cough, hemoptysis, orthopnea, SOB at rest, shortness of breath, SOB with excertion, stridor, wheezing, others Cardiovascular: denies: chest pain, dizzy spells, diaphoresis, Dyspnea on exertion, edema, irregular heart beat, left arm pain, lightheadedness, palpitations, PND, syncope, others Gastrointestinal: reports: abdominal pain; denies: abdomen distended, blood streaked bowels, constipated, diarrhea, dysphagia, difficulty swallowing, hematemesis, melena, nausea, poor appetite, poor fluid intake, rectal bleeding, rectal pain, vomiting, others Genitourinary: denies: burning, dysuria, flank pain, frequency, hematuria, incontinence, penile discharge, penile sore, pain, testicle pain, testicle swelling, urgency, others Neurological: denies: dizziness, fainting, headache, left sided numbness, left sided weakness, numbness, paresthesia, pre-existing deficit, right sided numbness, right sided weakness, seizure, speech problems, tingling, tremors, weakness, others Musculoskeletal: denies: back pain, gout, joint pain, joint swelling, muscle pain, muscle stiffness, neck pain, others Integumetry: denies: bruises, change in color, change in hair/nails, dryness, laceration, lesions, lumps, rash, wounds, others Allergic/Immunocompromised: denies: Difficulty Healing, Frequent Infections, Hives, Itching, others Hematologic/Lymphatic: denies: anemia, blood clots, easy bleeding, easy bruising, swollen glands, others Endocrine: denies: excessive hunger, excessive sweating, excessive thirst, excessive urination, flushing, intolerance to cold, intolerance to heat, unexplained weight gain, unexplained weight loss, others Psychiatric: denies: anxiety, bipolar disorder, depression, hopeless, panic disorder, schizophrenia, sleepless, suicidal, others All Other Systems: Reviewed and Negative Physical Exam General Appearance: No Apparent Distress, Normal HEENT: Normal ENT Inspection, Pharynx Normal, TMs Normal Neck: Full Range of Motion, Non-Tender, Normal, Normal Inspection Respiratory: Chest Non-Tender, Lungs Clear, No Accessory Muscle Use, No Respiratory Distress, Normal Breath Sounds Cardiovascular: No Edema, No JVD, No Murmur, No Gallop, Normal Peripheral Pulses, Regular Rate/Rhythm Breast Exam: Deferred Gastrointestinal: No Organomegaly, No Pulsatile Mass, Normal Bowel Sounds, Soft, Tenderness (LLQ abdominal tenderness) Genitalia: Deferred Pelvic: Deferred Rectal: Deferred Extremities: No calf tenderness, Normal capillary refill, Normal inspection, Normal range of motion, Non-tender, No pedal edema Musculoskeletal : Apperance: Normal Neurologic: Alert, home demonstration agent II-XII nml as Tested, No Motor Deficits, Normal Affect, Normal Mood, No Sensory Deficits Cerebellar Function: Normal Reflexes: Normal Skin: Dry, Normal Color, Warm Lymphatic: No Adenopathy Was a procedure done? Was a procedure done?: No GI differential Dx Differential Diagnosis: Diverticular disease, Gastroenteritis X-Ray, Labs, Meds, VS Vital Signs Date Time Temp Pulse Resp B/P (MAP) Pulse Ox O2 Delivery O2 Flow Rate FiO2 10/17/25 13:52 97 18 135/72 10/17/25 13:22 98 18 158/75 10/17/25 13:00 98.9 95 16 134/65 (88) 95 98.9 10/17/25 08:41 84 15 133/78 10/17/25 08:08 95 16 113/80 10/17/25 08:00 98.2 95 16 113/80 (91) 95 98.2 10/17/25 06:38 97.3 103 16 145/83 100 97.3 Lab Test 10/17/25 09:35 10/17/25 07:15 Range/Units Urine Color Yellow Yellow Urine Clarity Clear Clear Urine pH 5.5 5.0-9.0 Urine Specific [place] 1.023 1.001-1.035 Urine Protein Trace H Negative Urine Ketones 1+ H Negative Urine Blood Negative Negative /uL Urine Nitrite Negative Negative Urine Bilirubin Negative Negative Urine Urobilinogen Normal Negative mg/dL Urine Leukocyte Esterase Negative Negative /uL Urine RBC 3 0 - 3 /hpf Urine Microscopic WBC 1 0-3 /HPF Urine Squamous Epithelial Cells None seen <5 /hpf Urine Bacteria None seen None Seen /hpf Urine Mucus Few None Seen Urine Glucose Normal Normal mg/dL White Blood Count 22.1 H 4.4-10.8 10^3/uL Red Blood Count 5.04 4.5-5.90 10^6/uL Hemoglobin 16.3 13.5-17.5 g/dL Hematocrit 46.2 41.0-53.0 % Mean Corpuscular Volume 91.6 80.0-100.0 fL Mean Corpuscular Hemoglobin 32.3 H 28.0-32.0 pg Mean Corpuscular Hemoglobin Concent 35.2 32.0-36.0 g/dL Red Cell Distribution Width 13.0 11.8-14.3 % Platelet Count 413 140-450 10^3/uL Mean Platelet Volume 8.1 6.9-10.8 fL Neutrophils (%) (Auto) 87.8 H 37.0-80.0 % Lymphocytes (%) (Auto) 5.4 L 10.0-50.0 % Monocytes (%) (Auto) 6.3 0.0-12.0 % Eosinophils (%) (Auto) 0.3 0.0-7.0 % Basophils (%) (Auto) 0.2 0.0-2.0 % Neutrophils # (Auto) 19.4 H 1.6-8.6 10 ^3/uL Lymphocytes # (Auto) 1.2 0.4-5.4 10 ^3/uL Monocytes # (Auto) 1.4 H 0-1.3 10 ^3/uL Eosinophils # (Auto) 0.1 0-0.8 10 ^3/uL Basophils # (Auto) 0 0-0.2 10 ^3/uL Nucleated Red Blood Cells 0.0 % Sodium Level 140 136-145 mmol/L Potassium Level 4.1 3.5-5.1 mmol/L Chloride Level 106 98-107 mmol/L Carbon Dioxide Level 25 20-31 mmol/L Anion Gap 9 5-15 Blood Urea Nitrogen 12 9-23 mg/dL Creatinine 0.94 0.700-1.30 mg/dL Glomerular Filtration Rate Calc 104 >90 mL/min BUN/Creatinine Ratio 12.8 10.0-20.0 Serum Glucose 105 74-106 mg/dL Lactic Acid Level 1.0 0.4-2.0 mmol/L Calcium Level 10.2 8.7-10.4 mg/dL Microbiology Date/Time Source Procedure Growth Status 10/17/25 07:22 Blood Blood Culture - Preliminary NO GROWTH AFTER 72 HOURS OF INCUBATION. Resulted 10/17/25 07:22 Blood Blood Culture - Preliminary NO GROWTH AFTER 72 HOURS OF INCUBATION. Resulted Time of 1ST Reevaluation: 08:21 Reevaluation 1ST: Unchanged Patient Education/Counseling: Diagnosis, Treatment Family Education/Counseling: No Family Present SEPSIS Sepsis Screen Date sepsis recognized/suspect: Oct 17, 2025 Time Sepsis recognized/suspect: 640 Recent Procedure: No On Antibiotic Therapy: No Respiratory Rate >20: No Heart Rate >90: No Temp<36 C (96.8 F) or >38.3 C: No SBP <90 or MAP <65 mmHG: No New Acute Mental Status Change: No Is the patient on CPAP, BIPAP,: No Physician Orders Blood Culture (10/17/25 07:07) Ct Ab Pel With Iv Con Only (10/17/25 10:54) * Surgical Consult (10/17/25 ) Vital Signs Date Time Temp Pulse Resp B/P (MAP) Pulse Ox O2 Delivery O2 Flow Rate FiO2 10/17/25 13:52 97 18 135/72 10/17/25 13:22 98 18 158/75 10/17/25 13:00 98.9 95 16 134/65 (88) 95 98.9 10/17/25 08:41 84 15 133/78 10/17/25 08:08 95 16 113/80 10/17/25 08:00 98.2 95 16 113/80 (91) 95 98.2 10/17/25 06:38 97.3 103 16 145/83 100 97.3 Laboratory Tests Test 10/17/25 07:15 Lactic Acid Level 1.0 mmol/L (0.4-2.0) White Blood Count 22.1 10^3/uL (4.4-10.8) H Departure 1 Departure Time of Disposition: 13:48 (Patient presented with abdominal pain that was concerning for possible appendicits, gastritis, cholecystitis, colitis, gastroenteritis, sbo, or orther possible surgical emergency. Data: 1. I ordered and reviewed the result of at least 3 labs including a CBC, BMP, and Urinalysis. 2. I independently interpreted the following tests: CT Abdomen and Pelvis is concerning for perforated diverticula.Risk:This patient has a high risk of morbidity due to further diagnostic testing or treatment and may suffer from an acute abdominal process disorder. Workup reveals perforated diverticular and patient should be admitted for further workup. and possible expert consultation. ) Impression: Primary Impression: Perforated diverticulum Additional Impression: Intractable abdominal pain Disposition: ADMITTED INPATIENT Admit to: [facility] Condition: Critical Critical Care Note Critical Care Time?: Yes Critical care comment: Intractable abdominal pain with perforated viscous Authorized and Performed by: Gloria Maya MD Total critical care time: Approximately 43 minutes Due to a high probability of clinically significant, life threatening de terioration, the patient required my highest level of preparedness to intervene emergently and I personally spent this critical care time directly and personally managing the patient. This critical care time included obtaining a history; examining the patient; pulse oximetry; ordering and review of studies; arranging urgent treatment with development of a management plan; evaluation of patient's response to treatment; frequent reassessment; and, discussions with other providers. This critical care time was performed to assess and manage the high probability of imminent, life-threatening deterioration that could result in multi-organ failure. It was exclusive of separately billable procedures and treating other patients and teaching time. Please see my other sections and the rest of the note for further information on patient assessment and treatment. Stability Stability form required: No Heart Score Heart Score: Heart Score Response (Comments) Value History N/A 0 EKG N/A 0 Age N/A 0 Risk Factors N/A 0 Troponin N/A 0 Total 0 I personally scribed for GLORIA MAYA MD ([email or web address]) on 10/17/25 at 07:24. Electronically submitted by Augustine Shaw ([email or web address]). GLORIA MAYA MD Oct 17, 2025 07:24
[2025-10-17 07:47] LABS: Hematocrit 46.2 % (41.0-53.0); Hemoglobin 16.3 g/dL (13.5-17.5); Mean Corpuscular Hemoglobin 32.3 pg (28.0-32.0); Mean Corpuscular Volume 91.6 fL (80.0-100.0); Nucleated Red Blood Cells % 0.0 %
[2025-10-17] MEDS: ONDANSETRON HCL 4 MG/2 ML VIAL IV ONE ×2 (08:07→13:22)
[2025-10-17] MEDS: MORPHINE SULFATE 4 MG/ML SYR/VIAL IV ONE (08:08)
[2025-10-17] MEDS: SODIUM CHLORIDE 0.9% 1,000 ML IV ONE ×2 (08:08→12:06)
[2025-10-17 09:12] LABS: Chloride 106 mmol/L (98-107); Potassium 4.1 mmol/L (3.5-5.1); Sodium 140 mmol/L (136-145)
[2025-10-17 09:13] LABS: Anion Gap 9 (5-15); Calcium 10.2 mg/dL (8.7-10.4); Carbon Dioxide 25 mmol/L (20-31)
[2025-10-17 09:18] LABS: BUN/Creatinine Ratio 12.8 (10.0-20.0); Blood Urea Nitrogen 12 mg/dL (9-23); Glucose 105 mg/dL (74-106)
[2025-10-17 11:18] LABS: Urine Protein, UAD TRACE (Negative)
[2025-10-17] MEDS: ceFAZolin 2 GM/D5W50ml 50 ML IV ONE (12:06)
--- NOTE | 2025-10-17 12:14 | DVH ---
Exam: CT CT AB PEL WITH IV CON ONLY History: abdominal pain COMPARISON: CT CT AB PEL WITH IV CON ONLY on DOS: 10/01/25 Technique: Multidetector spiral CT of the abdomen and pelvis was performed from lung bases to pubic symphysis. Intravenous contrast was administered during this examination. Portal venous imaging was obtained. Axial, coronal and sagittal multiplanar reformats were performed by the technologist on a separate workstation. Radiation Dose : 1. Abdomen/Pelvis: CTDIvol 24.29 mGy, DLP 1341.11 mGy*cm. Findings: Lung Bases: No acute or significant lung base finding. Normal heart size. No pleural or pericardial effusion. Liver: The liver is normal in size. No focal lesions. Normal hepatic vascular enhancement. Gallbladder and Biliary Tree: Unremarkable Spleen: Unremarkable Pancreas: The pancreas is normal in appearance without focal lesions or abnormal enhancement. Adrenal Glands: Unremarkable Kidneys: Few nonobstructing left renal calculi measuring up to 6 mm. Few small right renal cortical cyst. Bladder: Unremarkable Bowel: Multiple inflamed diverticula in the sigmoid colon with segmental wall thickening and extensive mesenteric edema. Multiple locules of free air within the sigmoid mesentery with small pockets of disorganized fluid. No rim enhancement. No obstruction or other complication. Ascites: Absent Lymphadenopathy: No mesenteric, retroperitoneal or periportal lymphadenopathy. Abdominal Wall and Mesentery: Unremarkable. Vasculature: The visualized abdominal aorta is normal in size and caliber. Abdominal and pelvic vessels demonstrate normal enhancement. Pelvic Organs: Unremarkable Musculoskeletal: No aggressive focal bony lesions, acute fractures or dislocation. IMPRESSION: Acute perforated sigmoid diverticulitis with a few locules of air in the sigmoid mesentery and a few small pockets of disorganized fluid. Radiation optimization: All CT scans at this facility use at least one of these dose optimization techniques: automated exposure control mA and/or kV adjustment per patient size (includes targeted exams where dose is matched to clinical indication) or iterative reconstruction.
[2025-10-17] MEDS: IOHEXOL 300 MG/ML 100ML BOTTLE IJ ONE (13:07)
[2025-10-17] MEDS: HYDROmorphone HCL 2 MG/ML VL/or syr IV ONE ×2 (13:22→19:47)
[2025-10-17] MEDS ORDERED: ONDANSETRON HCL 4 MG/2 ML VIAL IV PRN (14:00)
[2025-10-17] MEDS ORDERED: MORPHINE SULFATE INJ 2 MG/ml SYRG IV PRN (14:00)
[2025-10-17] MEDS ORDERED: CEFEPIME 1GM/50ML 50 ML IV SCH (14:00)
[2025-10-17] MEDS ORDERED: D5W/SOD CHLO 0.9% 1,000 ML IV ONE (14:00)
[2025-10-17 14:01] VITALS: PULSE 98; RESP 18; O2SAT 98
--- NOTE | 2025-10-17 14:27 | DVHINCON2 ---
Date of service: Oct 17, 2025 Family History: Diabetes mellitus G8 MOTHER Allergies: Coded Allergies: NO KNOWN ALLERGIES (Unverified , 02/27/13) Home Meds Active Scripts Ondansetron Odt 4MG Tab (ZOFRAN PO) 4 Mg Tb, 4 MG PO TIDP PRN, #25 TAB 0 Refills ODT TAB-DISSOLVE IN MOUTH, THEN SWALLOW Prov:LATRELL AJ MD 10/04/25 Hydrocodone-Acetaminophen (Hydrocodone Bitartrate/AC 5-325 mg) 1 Tab Tab, 1 TAB PO TIDP PRN for 7 Days, #21 TAB 0 Refills Prov:LATRELL AJ MD 10/04/25 Docusate Sodium (Colace) 100 Mg Cap, 1 CAP PO BID, #60 CAP Prov:LATRELL AJ MD 10/04/25 Amoxicillin & Pot Clavulanate (AUGMENTIN TABLET) 875 Mg Tb, 875 MG PO BID for 5 Days, #10 TAB Prov:LATRELL AJ MD 10/04/25 Current Medications Current Medications Medications (Trade) Dose Ordered Sig/Aristeo Route PRN Reason Start Time Stop Time Status Last Admin Cefepime HCl 50 ml @ 12.5 mls/hr Q8HR IV 10/17/25 14:00 UNV Metronidazole 100 ml @ 100 mls/hr Q8HR IV 10/17/25 14:00 UNV Pantoprazole Sodium (Protonix) 40 mg DAILY IV 10/18/25 10:00 UNV Ondansetron HCl (Zofran) 4 mg Q4HP PRN IV NAUSEA / VOMITING 10/17/25 14:00 UNV Morphine Sulfate 2 mg Q4HPRN PRN IV SEVERE PAIN (7-10 PAIN SCALE) 10/17/25 14:00 UNV Vital Signs Vital Signs Date Time Temp Pulse Resp B/P (MAP) Pulse Ox O2 Delivery O2 Flow Rate FiO2 10/17/25 14:07 94 Room Air* 0 21 10/17/25 14:01 98 18 10/17/25 13:22 158/75 10/17/25 13:00 98.9 98.9 Labs/Diagnostic Data Labs Test 10/17/25 09:35 10/17/25 07:15 Range/Units Urine Color Yellow Yellow Urine Clarity Clear Clear Urine pH 5.5 5.0-9.0 Urine Specific [place] 1.023 1.001-1.035 Urine Protein Trace H Negative Urine Ketones 1+ H Negative Urine Blood Negative Negative /uL Urine Nitrite Negative Negative Urine Bilirubin Negative Negative Urine Urobilinogen Normal Negative mg/dL Urine Leukocyte Esterase Negative Negative /uL Urine RBC 3 0 - 3 /hpf Urine Microscopic WBC 1 0-3 /HPF Urine Squamous Epithelial Cells None seen <5 /hpf Urine Bacteria None seen None Seen /hpf Urine Mucus Few None Seen Urine Glucose Normal Normal mg/dL White Blood Count 22.1 H 4.4-10.8 10^3/uL Red Blood Count 5.04 4.5-5.90 10^6/uL Hemoglobin 16.3 13.5-17.5 g/dL Hematocrit 46.2 41.0-53.0 % Mean Corpuscular Volume 91.6 80.0-100.0 fL Mean Corpuscular Hemoglobin 32.3 H 28.0-32.0 pg Mean Corpuscular Hemoglobin Concent 35.2 32.0-36.0 g/dL Red Cell Distribution Width 13.0 11.8-14.3 % Platelet Count 413 140-450 10^3/uL Mean Platelet Volume 8.1 6.9-10.8 fL Neutrophils (%) (Auto) 87.8 H 37.0-80.0 % Lymphocytes (%) (Auto) 5.4 L 10.0-50.0 % Monocytes (%) (Auto) 6.3 0.0-12.0 % Eosinophils (%) (Auto) 0.3 0.0-7.0 % Basophils (%) (Auto) 0.2 0.0-2.0 % Neutrophils # (Auto) 19.4 H 1.6-8.6 10 ^3/uL Lymphocytes # (Auto) 1.2 0.4-5.4 10 ^3/uL Monocytes # (Auto) 1.4 H 0-1.3 10 ^3/uL Eosinophils # (Auto) 0.1 0-0.8 10 ^3/uL Basophils # (Auto) 0 0-0.2 10 ^3/uL Nucleated Red Blood Cells 0.0 % Sodium Level 140 136-145 mmol/L Potassium Level 4.1 3.5-5.1 mmol/L Chloride Level 106 98-107 mmol/L Carbon Dioxide Level 25 20-31 mmol/L Anion Gap 9 5-15 Blood Urea Nitrogen 12 9-23 mg/dL Creatinine 0.94 0.700-1.30 mg/dL Glomerular Filtration Rate Calc 104 >90 mL/min BUN/Creatinine Ratio 12.8 10.0-20.0 Serum Glucose 105 74-106 mg/dL Lactic Acid Level 1.0 0.4-2.0 mmol/L Calcium Level 10.2 8.7-10.4 mg/dL Assessment 39 year old male with had Dx of Diverticulitis about 2 and 1/2 months ago and was supposed to f/u with MD which he did not do, in last few daqys pain got worse and after eating a large meal pain became excruciating and he caqme to this emergency room. his abdomen is sooft, non [id number], tender in the suprapubic area, no rebound no guarding. WBC elevated. will observe , no indication for emergency operation, explained tro patient and answered all his questions. Plan discussed with: Patient, Other YANDY JOSHUA MD Oct 17, 2025 14:27
[2025-10-17] MEDS: ONDANSETRON HCL 4 MG/2 ML VIAL IV PRN (16:35)
[2025-10-17] MEDS: MORPHINE SULFATE INJ 2 MG/ml SYRG ONE (16:35)
[2025-10-17] MEDS: PANTOPRAZOLE 40 MG/10 ML VIAL INJ IV ONE (16:35)
[2025-10-17] MEDS: D5W/SOD CHLO 0.9% 1,000 ML IV ONE (16:35)
[2025-10-17] MEDS: ONDANSETRON HCL 4 MG/2 ML VIAL ONE (16:35)
[2025-10-17] MEDS: MORPHINE SULFATE INJ 2 MG/ml SYRG IV PRN (16:36)
--- NOTE | 2025-10-17 16:48 | DVHHP2 ---
History of Present Illness Reason for Visit: Abdominal pain History of Present Illness 39 male presents for of abdominal pain. Patient endorses a four day history of developing lower abdominal discomfort. He states that over the past two days pain has become sharp and intense. Denies nausea or vomiting. No diarrhea or fever. He reports being diagnosed with diverticulitis two weeks ago. Past Medical History Diverticulitis, kidney stones Past Surgical History Denies Family History Denies Smoke: <1 pack per day ALCOHOL: occassional Drugs: Marijuana Lives: with Family Review of Systems Review of Systems Review of systems are currently negative otherwise addressed in HPI. Allergies: Coded Allergies: NO KNOWN ALLERGIES (Unverified , 02/27/13) Medications Current Medications Medications Dose Ordered Sig/Aristeo Route Start Time Stop Time Status Last Admin Dose Admin Cefepime HCl 50 ml @ 12.5 mls/hr Q8HR IV 10/17/25 22:00 Metronidazole 100 ml @ 100 mls/hr Q8HR IV 10/17/25 22:00 Pantoprazole Sodium 40 mg DAILY IV 10/18/25 10:00 Ondansetron HCl 4 mg Q4HP PRN IV 10/17/25 16:30 10/17/25 16:35 4 MG Morphine Sulfate 2 mg Q4HPRN PRN IV 10/17/25 16:30 10/17/25 16:36 2 MG Exam Vital Signs Vital Signs Date Time Temp Pulse Resp B/P (MAP) Pulse Ox O2 Delivery O2 Flow Rate FiO2 10/17/25 16:36 96 17 115/61 10/17/25 16:00 98.5 95 98.5 10/17/25 14:07 Room Air* 0 21 Exam Gen: 39-year-old male in mild distress Skin: Warm, dry, normal color and texture, no rash. HEENT: Normocephalic atraumatic, mucous membranes moist and pink. Neck: Cervical and supraclavicular nodes normal without enlargement, trachea is midline, thyroid gland is normal without masses. Pulmonary: Clear to auscultation and percussion bilaterally. Cardiac: Regular rate and rhythm. No murmur Abdomen: Soft, lower abdominal tenderness, nondistended, bowel sounds present all 4 quadrants, no guarding, no rigidity, no organomegaly. Extremities: No cyanosis, clubbing, no edema Neuro: Cranial nerves II through XII grossly intact, normal affect and speech, no focal motor deficits. Labs/Xrays ORDERING PHYSICIAN: GLORIA ROONEY MD PROCEDURE(s): ABPLIV - CT AB PEL WITH IV CON ONLY REASON: abdominal pain ORDER NUMBER(s): [id number], ACCESSION NUMBER(s): [id number] Exam: CT CT AB PEL WITH IV CON ONLY History: abdominal pain COMPARISON: CT CT AB PEL WITH IV CON ONLY on DOS: 10/01/25 Technique: Multidetector spiral CT of the abdomen and pelvis was performed from lung bases to pubic symphysis. Intravenous contrast was administered during this examination. Portal venous imaging was obtained. Axial, coronal and sagittal multiplanar reformats were performed by the technologist on a separate workstation. Radiation Dose : 1. Abdomen/Pelvis: CTDIvol 24.29 mGy, DLP 1341.11 mGy*cm. Findings: Lung Bases: No acute or significant lung base finding. Normal heart size. No pleural or pericardial effusion. Liver: The liver is normal in size. No focal lesions. Normal hepatic vascular enhancement. Gallbladder and Biliary Tree: Unremarkable Spleen: Unremarkable Pancreas: The pancreas is normal in appearance without focal lesions or abnormal enhancement. Adrenal Glands: Unremarkable Kidneys: Few nonobstructing left renal calculi measuring up to 6 mm. Few small right renal cortical cyst. Bladder: Unremarkable Bowel: Multiple inflamed diverticula in the sigmoid colon with segmental wall thickening and extensive mesenteric edema. Multiple locules of free air within the sigmoid mesentery with small pockets of disorganized fluid. No rim enhancement. No obstruction or other complication. Ascites: Absent Lymphadenopathy: No mesenteric, retroperitoneal or periportal lymphadenopathy. Abdominal Wall and Mesentery: Unremarkable. Vasculature: The visualized abdominal aorta is normal in size and caliber. Abdominal and pelvic vessels demonstrate normal enhancement. Pelvic Organs: Unremarkable Musculoskeletal: No aggressive focal bony lesions, acute fractures or dislocation. IMPRESSION: Acute perforated sigmoid diverticulitis with a few locules of air in the sigmoid mesentery and a few small pockets of disorganized fluid. Radiation optimization: All CT scans at this facility use at least one of these dose optimization techniques: automated exposure control mA and/or kV a djustment per patient size (includes targeted exams where dose is matched to clinical indication) or iterative reconstruction. Labs Test 10/17/25 09:35 10/17/25 07:15 Range/Units Urine Color Yellow Yellow Urine Clarity Clear Clear Urine pH 5.5 5.0-9.0 Urine Specific [place] 1.023 1.001-1.035 Urine Protein Trace H Negative Urine Ketones 1+ H Negative Urine Blood Negative Negative /uL Urine Nitrite Negative Negative Urine Bilirubin Negative Negative Urine Urobilinogen Normal Negative mg/dL Urine Leukocyte Esterase Negative Negative /uL Urine RBC 3 0 - 3 /hpf Urine Microscopic WBC 1 0-3 /HPF Urine Squamous Epithelial Cells None seen <5 /hpf Urine Bacteria None seen None Seen /hpf Urine Mucus Few None Seen Urine Glucose Normal Normal mg/dL White Blood Count 22.1 H 4.4-10.8 10^3/uL Red Blood Count 5.04 4.5-5.90 10^6/uL Hemoglobin 16.3 13.5-17.5 g/dL Hematocrit 46.2 41.0-53.0 % Mean Corpuscular Volume 91.6 80.0-100.0 fL Mean Corpuscular Hemoglobin 32.3 H 28.0-32.0 pg Mean Corpuscular Hemoglobin Concent 35.2 32.0-36.0 g/dL Red Cell Distribution Width 13.0 11.8-14.3 % Platelet Count 413 140-450 10^3/uL Mean Platelet Volume 8.1 6.9-10.8 fL Neutrophils (%) (Auto) 87.8 H 37.0-80.0 % Lymphocytes (%) (Auto) 5.4 L 10.0-50.0 % Monocytes (%) (Auto) 6.3 0.0-12.0 % Eosinophils (%) (Auto) 0.3 0.0-7.0 % Basophils (%) (Auto) 0.2 0.0-2.0 % Neutrophils # (Auto) 19.4 H 1.6-8.6 10 ^3/uL Lymphocytes # (Auto) 1.2 0.4-5.4 10 ^3/uL Monocytes # (Auto) 1.4 H 0-1.3 10 ^3/uL Eosinophils # (Auto) 0.1 0-0.8 10 ^3/uL Basophils # (Auto) 0 0-0.2 10 ^3/uL Nucleated Red Blood Cells 0.0 % Sodium Level 140 136-145 mmol/L Potassium Level 4.1 3.5-5.1 mmol/L Chloride Level 106 98-107 mmol/L Carbon Dioxide Level 25 20-31 mmol/L Anion Gap 9 5-15 Blood Urea Nitrogen 12 9-23 mg/dL Creatinine 0.94 0.700-1.30 mg/dL Glomerular Filtration Rate Calc 104 >90 mL/min BUN/Creatinine Ratio 12.8 10.0-20.0 Serum Glucose 105 74-106 mg/dL Lactic Acid Level 1.0 0.4-2.0 mmol/L Calcium Level 10.2 8.7-10.4 mg/dL SEPSIS Sepsis Screen Date sepsis recognized/suspect: Oct 17, 2025 Time Sepsis recognized/suspect: 1404 Recent Procedure: No On Antibiotic Therapy: No Respiratory Rate >20: No Heart Rate >90: No Temp<36 C (96.8 F) or >38.3 C: No SBP <90 or MAP <65 mmHG: No New Acute Mental Status Change: No Is the patient on CPAP, BIPAP,: No Physician Orders Ct Ab Pel With Iv Con Only (10/17/25 10:54) * Surgical Consult (10/17/25 ) Npo (Nothing By Mouth) Diet (10/17/25 Dinner) Ng To Lcs (10/17/25 13:57) Place Ng (10/17/25 13:57) Insert Lott Catheter QSHIFT (10/17/25 13:58) Basic Metabolic Panel (10/18/25 04:00) Admit (10/17/25 13:52) Complete Blood Count (10/18/25 04:00) Condition: Stable (10/17/25 13:52) Bedrest With Bathroom Privileg (10/17/25 13:52) Chest Xray 1 View (10/17/25 14:50) Cefepime 1gm/50ml (Maxipime 1gm/50ml) (10/17/25 22:00) Metronidazole 500mg/100ml (Flagyl 500mg/ (10/17/25 22:00) Pantoprazole (Protonix) (10/18/25 10:00) Ondansetron Hcl (Zofran) (10/17/25 16:30) Morphine Sulfate Injection (10/17/25 16:30) D5w/Sod Chlo 0.9% (D5w Ns 0.9%) (10/17/25 16:30) Vital Signs Date Time Temp Pulse Resp B/P (MAP) Pulse Ox O2 Delivery O2 Flow Rate FiO2 10/17/25 16:36 96 17 115/61 10/17/25 16:00 98.5 96 16 115/61 (79) 95 98.5 10/17/25 14:07 94 Room Air* 0 21 10/17/25 14:01 98 18 98 Room Air* 0 21 10/17/25 14:00 99 16 131/75 (93) 95 10/17/25 13:52 97 18 135/72 10/17/25 13:22 98 18 158/75 10/17/25 13:00 98.9 95 16 134/65 (88) 95 98.9 Laboratory Tests Test 10/17/25 07:15 Lactic Acid Level 1.0 mmol/L (0.4-2.0) White Blood Count 22.1 10^3/uL (4.4-10.8) H Medications Medications Dose Ordered Sig/Aristeo Route Start Time Stop Time Status Last Admin Dose Admin Cefazolin Sodium/ Dextrose 50 ml @ 50 mls/hr ONCE ONCE IV 10/17/25 11:00 10/17/25 11:59 DC 10/17/25 12:06 50 MLS/HR Dextrose/Sodium Chloride 1,000 ml @ 85 mls/hr [id number] ONCE IV 10/17/25 16:30 10/18/25 04:15 10/17/25 16:35 85 MLS/HR Hydromorphone HCl 1 mg ONCE ONCE IV 10/17/25 13:15 10/17/25 13:16 DC 10/17/25 13:22 1 MG Metronidazole 100 ml @ 100 mls/hr ONCE ONCE IV 10/17/25 11:00 10/17/25 11:59 DC 10/17/25 12:06 100 MLS/HR Morphine Sulfate 2 mg Q4HPRN PRN IV 10/17/25 16:30 10/17/25 16:36 2 MG Morphine Sulfate 4 mg ONCE ONCE IV 10/17/25 07:15 10/17/25 07:21 DC 10/17/25 08:08 4 MG Ondansetron HCl 4 mg ONCE ONCE IV 10/17/25 07:15 10/17/25 07:21 DC 10/17/25 08:07 4 MG Ondansetron HCl 4 mg ONCE ONCE IV 10/17/25 13:15 10/17/25 13:16 DC 10/17/25 13:22 4 MG Ondansetron HCl 4 mg Q4HP PRN IV 10/17/25 16:30 10/17/25 16:35 4 MG Pantoprazole Sodium 40 mg ONCE ONCE IV 10/17/25 14:00 10/17/25 15:31 DC 10/17/25 16:35 40 MG Sodium Chloride 1,000 ml @ 1,000 mls/hr Q1H ONCE IV 10/17/25 07:15 10/17/25 08:14 DC 10/17/25 08:08 1,000 MLS/HR Sodium Chloride 1,000 ml @ 1,000 mls/hr Q1H ONCE IV 10/17/25 11:00 10/17/25 11:59 DC 10/17/25 12:06 1,000 MLS/HR Assessment/Plan Assessment/Plan Assessment Acute diverticulitis with perforation Leukocytosis Plan Admit the patient to [facility] to the hospitalist Surgical consultation NPO Cefepime/Flagyl Maintenance IV fluids Pain management Continue treatment per orders. Plan discussed with: Patient My Orders Orders - ALEXYS FREGOSO Procedure Category Date Status Time Basic Metabolic Panel LAB 10/18/25 Verified 04:00 Admit ADMIT 10/17/25 Transmitted 13:52 Complete Blood Count LAB 10/18/25 Verified 04:00 Condition: Stable MARLYS 10/17/25 In Process 13:52 Bedrest With Bathroom MARLYS 10/17/25 In Process Privileg 13:52 Cefepime 1gm/50ml PHA 10/17/25 In Process (Maxipime 1gm/50ml) 22:00 Metronidazole PHA 10/17/25 In Process 500mg/100ml (Flagyl 22:00 Pantoprazole PHA 10/18/25 In Process (Protonix) 10:00 Ondansetron Hcl PHA 10/17/25 In Process (Zofran) 16:30 Morphine Sulfate PHA 10/17/25 In Process Injection 16:30 D5w/Sod Chlo 0.9% PHA 10/17/25 In Process (D5w Ns 0.9%) 16:30 Date of Service: Oct 17, 2025 Billing Provider: ALEXYS FREGOSO Common Visit Codes: [id number] INP/OBS CARE (HIGH) ALEXYS FREGOSO Oct 17, 2025 16:48
--- NOTE | 2025-10-17 18:30 | DVH ---
CHEST RADIOGRAPH Indication: NGT placement Technique: Single frontal view of the chest was obtained COMPARISON: None FINDINGS: NG tube within the proximal stomach. Lungs and pleural spaces are clear. Cardiac silhouette and steph are within normal limits. Bones and soft tissues demonstrate no significant abnormality. IMPRESSION: NG tube within the proximal stomach.
[2025-10-17] MEDS: CEFEPIME 1GM/50ML 50 ML IV SCH (22:00)
[2025-10-18] VITALS (7 sets, daily range): BP systolic 129–138; BP diastolic 71–77; PULSE 81–91; RESP 16–18; TEMP 97.8–98.9; O2SAT 93–98
[2025-10-18 07:31] LABS: Hematocrit 37.2 % (41.0-53.0); Hemoglobin 13.0 g/dL (13.5-17.5); Mean Corpuscular Hemoglobin 31.9 pg (28.0-32.0); Mean Corpuscular Volume 91.2 fL (80.0-100.0); Nucleated Red Blood Cells % 0.1 %
[2025-10-18 07:40] LABS: Calcium 9.4 mg/dL (8.7-10.4); Chloride 105 mmol/L (98-107); Sodium 143 mmol/L (136-145)
[2025-10-18 07:41] LABS: Anion Gap 13 (5-15); Carbon Dioxide 25 mmol/L (20-31)
[2025-10-18 07:44] LABS: Potassium 3.5 mmol/L (3.5-5.1)
[2025-10-18 07:46] LABS: BUN/Creatinine Ratio 12.5 (10.0-20.0); Blood Urea Nitrogen 11 mg/dL (9-23); Glucose 89 mg/dL (74-106)
[2025-10-18 09:12] LABS: Alanine Aminotransferase 15 U/L (7-40); Albumin 3.8 g/dL (3.2-4.8); Alkaline Phosphatase 73 U/L (46-116); Anion Gap 13 (5-15); BUN/Creatinine Ratio 12.0 (10.0-20.0); Bilirubin, Total 0.8 mg/dL (0.2-1.0); Blood Urea Nitrogen 11 mg/dL (9-23); Calcium 8.9 mg/dL (8.7-10.4); Carbon Dioxide 26 mmol/L (20-31); Chloride 105 mmol/L (98-107); Glucose 85 mg/dL (74-106); Potassium 3.7 mmol/L (3.5-5.1); Sodium 144 mmol/L (136-145); Total Protein 6.1 g/dL (5.7-8.2)
--- NOTE | 2025-10-18 09:36 | DVHPN2 ---
Subjective Date Seen: Oct 18, 2025 Post op day Post op day: 0 Patient reports: No new complaints Nursing reports: No new complaints General: Normal HNT: Normal Cardiovascular: Normal Respiratory: Normal Gastrointestinal: Abdominal Pain Genitourinary: Normal Musculoskeletal: Normal Neurological: Normal Objective Vitals Vital Sign Date Time Temp Pulse Resp B/P (MAP) Pulse Ox O2 Delivery O2 Flow Rate FiO2 10/18/25 09:00 98.2 87 16 130/76 (94) 93 98.2 10/18/25 02:20 Room Air* 0 21 Total Intake and Output 10/17/25 10/17/25 10/18/25 15:00 23:00 07:00 Intake Total 2150 ml 170 ml 505.0 ml Output Total 700 ml 500 ml Balance 2150 ml -530 ml 5.0 ml Medications Current Medications Medications Dose Ordered Sig/Aristeo Route Start Time Stop Time Status Last Admin Dose Admin Cefepime HCl 50 ml @ 12.5 mls/hr Q8HR IV 10/17/25 22:00 10/18/25 06:58 12.5 MLS/HR Metronidazole 100 ml @ 100 mls/hr Q8HR IV 10/17/25 22:00 10/18/25 06:03 100 MLS/HR Pantoprazole Sodium 40 mg DAILY IV 10/18/25 10:00 Ondansetron HCl 4 mg Q4HP PRN IV 10/17/25 16:30 10/17/25 16:35 4 MG Morphine Sulfate 2 mg Q4HPRN PRN IV 10/17/25 16:30 10/18/25 06:12 2 MG Lactated Ringer's 1,000 ml @ 125 mls/hr Q8H IV 10/18/25 08:15 General: Normal Head/Eyes: Normal ENT: Normal Neck: Normal, Supple Lungs: Normal Cardiovascular: Normal, Regular rate and rhythm Abdomen quadrants: LLQ Tenderness; RLQ Tenderness Musculoskeletal: Normal Extremities: Normal Skin: Normal Labs and Microbiology Laboratory Tests 10/18/25 05:12 Test 10/18/25 05:12 Range/Units Serum Glucose 85 74-106 mg/dL Ass/Plan Problems(with codes): (1) Diverticulitis of intestine Assessment/Plan abdomen tender to palpation Plan: continue NPO NG to LCS continue IV antibiotics Prognosis: Good Plan discussed with patient, Dr. Ge Visit Coding Surgery Date of Service if different f: Oct 18, 2025 Billing Provider: YANDY GE MD Surgery Visit Codes: [id number] - INP CONSULT <80 MIN RAYNA FLOR NP Oct 18, 2025 09:36
[2025-10-18] MEDS ORDERED: PANTOPRAZOLE 40 MG/10 ML VIAL INJ IV SCH (10:00)
[2025-10-18] MEDS: LACTATED RINGER'S 1,000 ML IV SCH (10:05)
[2025-10-18] MEDS: PANTOPRAZOLE 40 MG/10 ML VIAL INJ IV SCH (10:05)
[2025-10-18] MEDS ORDERED: CLINIMIX PER PHARMACY 0 ML IV SCH (11:00)
--- NOTE | 2025-10-18 13:58 | MEDREC ---
[facility] Intervention Section I [facility] Intervention: Review courses of therapy (CONSIDER DE-ESCALATATION FROM CEFEPIME TO CEFTRIAXONE) MARY ARENAS [facility] RESIDENT Oct 18, 2025 13:58
[2025-10-18] MEDS: HYDROmorphone HCL 2 MG/ML VL/or syr ONE ×2 (14:35→22:32)
[2025-10-18] MEDS: HYDROmorphone HCL 2 MG/ML VL/or syr IV PRN (14:37)
--- NOTE | 2025-10-18 16:30 | DVHPNRES ---
Progress Note Date Seen: Oct 18, 2025 Resident Creating Document: ASHWINI MATHEWS RESIDENT Medical Necessity Reason Pt with a Central, PICC or Fol: No Subjective Review of Systems Patient is 39 years old male with a history of diverticulitis, renal stone, hepatic steatosis came with the abdominal pain. As per patient he started having abdominal pain 4 days before while at work, he felt like he has a pop, constant, sharp pain 6 to 7/10, no radiation. Patient denied any nausea or vomiting or fever. Patient was recently admitted on September, for acute diverticulitis with microperforation and was treated conservatively, no surgical intervention noted and was treated with IV antibiotic followed by oral antibiotic on discharge. Initial lab workup revealed leukocytosis with WBC 22.1. CT abdomen and pelvis revealed Acute perforated sigmoid diverticulitis with a few locules of air in the sigmoid mesentery and a few small pockets of disorganized fluid. PMH-diverticulitis, renal stone, hepatic steatosis PSH- right leg surgery, left jaw surgery Allergy- NKDA Personal History/ Social History- smokes 1 pack per year cigarettes for a long time, ex alcoholic, use marijuana, lives in a rental home Review of the system Cardiovascular- deny acute chest pain or shortness of breath or cough or palpitation Respiratory denies cough or short of breath or wheezing Gastrointestinal- abdominal pain, denies any rectal bleeding, nausea or vomiting Musculoskeletal-denies acute joint swelling or tenderness or redness Neurological- denies acute dysarthria, dysphagia, change in vision Psychiatry- denies depression or SI or HI Skin- denies acute rash or purpura Patient was seen today at bedside, labs and chart reviewed. Patient was seen by surgery, recommended for continue current conservative management, no surgical intervention at this moment. Patient on cefepime and metronidazole, ordered Clinimix, blood culture no growth so far. Objective vital signs Vital Sign Date Time Temp Pulse Resp B/P (MAP) Pulse Ox O2 Delivery O2 Flow Rate FiO2 10/18/25 14:37 90 16 137/76 10/18/25 12:55 98.0 93 98.0 10/18/25 07:30 Room Air* 0 21 Total Intake and Output 10/17/25 10/17/25 10/18/25 15:00 23:00 07:00 Intake Total 2150 ml 170 ml 505.0 ml Output Total 700 ml 500 ml Balance 2150 ml -530 ml 5.0 ml medications Current Medications Medications Dose Ordered Sig/Aristeo Route Start Time Stop Time Status Last Admin Dose Admin Cefepime HCl 50 ml @ 12.5 mls/hr Q8HR IV 10/17/25 22:00 10/18/25 06:58 12.5 MLS/HR Metronidazole 100 ml @ 100 mls/hr Q8HR IV 10/17/25 22:00 10/18/25 14:02 100 MLS/HR Pantoprazole Sodium 40 mg DAILY IV 10/18/25 10:00 10/18/25 10:05 40 MG Ondansetron HCl 4 mg Q4HP PRN IV 10/17/25 16:30 10/17/25 16:35 4 MG Lactated Ringer's 1,000 ml @ 125 mls/hr Q8H IV 10/18/25 08:15 10/18/25 10:05 125 MLS/HR Amino Acids 0 ml @ 0 mls/hr PER PHARMACY IV 10/18/25 11:00 Hydromorphone HCl 0.25 mg Q4HPRN PRN IV 10/18/25 13:00 10/18/25 14:37 0.25 MG Examination General examination- awake, alert, oriented HEENT- PEERLA, no acute nasal discharge Cardiovascular- S1-S2 audible, rate and rhythm regular, no murmur Respiratory- CTAB, no wheeze or rhonchi Gastrointestinal-mild lower abdominal tenderness present, bowel sound+. Nondistended Musculoskeletal-no acute joint swelling or tenderness or redness Lower extremity- no leg edema, scar in the right leg Neurological- cranial nerves intact, no acute dysarthria or dysphagia Psychiatry- denies depression or SI or HI Skin- no acute rash or purpura laboratory and microbiology Laboratory Tests 10/18/25 05:12 Test 10/18/25 05:12 Range/Units Serum Glucose 85 74-106 mg/dL Microbiology Date/Time Source Procedure Growth Status 10/17/25 07:22 Blood Blood Culture - Preliminary NO GROWTH AFTER 24 HOURS OF INCUBATION. Resulted Problem List/Assessment/Plan Problem List/Assessment/Plan Assessment and plan # acute intractable abdominal pain likely due to acute perforated sigmoid diverticulitis with small packet of disorganized fluid #acute perforated sigmoid diverticulitis #SIRS -CT abdominal pelvis revealed-Acute perforated sigmoid diverticulitis with a few locules of air in the sigmoid mesentery and a few small pockets of disorganized fluid. -leukocytosis with WBC 22.1 -status post surgical consult-surgery recommended for conservative management for now -NG tube suction -blood culture no growth so far -continue IV fluid as prescribed -ordered Clinimix as per pharmacy protocol -continue pain medication as prescribed -continue cefepime and metronidazole IV as prescribed -monitor vitals # history of kidney stone -follow up outpatient with primary care physician # hepatic steatosis -follow up outpatient with the primary care physician Goals of care, Code status full code ; discussed with >15 minutes PUD prophylaxis: Pantoprazole DVT prophylaxis: Lovenox Plan discussed with Dr. Minor , nursing staff, RN Total time spent on patient evaluation, chart review, assessment and plan, discussion discussion >35 minutes Plan discussed with: Patient, Other (RN) My Orders My Orders Orders - ASHWINI MATHEWS Procedure Category Date Status Time Lactated Ringer's PHA 10/18/25 In Process 08:15 Hydromorphone PHA 10/18/25 In Process Injection (Dilaudid 13:00 Date of Service: Oct 18, 2025 Billing Provider: JOSE MINOR MD Common Visit Codes: [id number] INP/OBS CARE(HIGH) ASHWINI MATHEWS RESIDENT Oct 18, 2025 16:30 CHRISTIAN QUEVEDO RESIDENT Oct 19, 2025 15:01 JOSE MINOR MD Oct 29, 2025 21:01
[2025-10-18] MEDS ORDERED: SORE THROAT SPRAY 6OZ BOTTLE MT PRN (20:15)
[2025-10-18] MEDS ORDERED: DEXTROSE (50%) 50ML SYRG IV SCH (22:00)
[2025-10-18] MEDS: AMINO ACID INFUSION IN D10W 1,000 ML IV SCH (23:10)
[2025-10-19] VITALS (8 sets, daily range): BP systolic 127–143; BP diastolic 68–88; PULSE 61–101; RESP 18–20; TEMP 97.5–98.1; O2SAT 96–98
[2025-10-19] MEDS: InsuLIN REG 1unit/0.01ml Soln (100units/ml) SC SCH (00:59)
[2025-10-19] MEDS: ACCU-CHEK COMFORT CURVE STRIP VI SCH (01:00)
--- NOTE | 2025-10-19 06:51 | DVHPN2 ---
Progress Note Date Seen: Oct 19, 2025 Medical Necessity Reason Pt with a Central, PICC or Fol: No Objective vital signs Vital Sign Date Time Temp Pulse Resp B/P (MAP) Pulse Ox O2 Delivery O2 Flow Rate FiO2 10/19/25 05:00 97.6 79 20 128/79 (95) 96 97.6 10/18/25 20:00 Room Air* 0 21 Total Intake and Output 10/18/25 10/18/25 10/19/25 15:00 23:00 07:00 Intake Total 750 ml 0 ml Output Total 400 ml Balance 750 ml -400 ml medications Current Medications Medications Dose Ordered Sig/Aristeo Route Start Time Stop Time Status Last Admin Dose Admin Cefepime HCl 50 ml @ 12.5 mls/hr Q8HR IV 10/17/25 22:00 10/19/25 06:35 12.5 MLS/HR Metronidazole 100 ml @ 100 mls/hr Q8HR IV 10/17/25 22:00 10/19/25 05:20 100 MLS/HR Pantoprazole Sodium 40 mg DAILY IV 10/18/25 10:00 10/18/25 10:05 40 MG Ondansetron HCl 4 mg Q4HP PRN IV 10/17/25 16:30 10/17/25 16:35 4 MG Lactated Ringer's 1,000 ml @ 125 mls/hr Q8H IV 10/18/25 08:15 10/18/25 10:05 125 MLS/HR Amino Acids 0 ml @ 0 mls/hr PER PHARMACY IV 10/18/25 11:00 Hydromorphone HCl 0.25 mg Q4HPRN PRN IV 10/18/25 13:00 10/18/25 22:47 0.25 MG Diagnostic Test (Pha) 1 strip Q6HR 10/19/25 00:00 10/19/25 05:37 1 STRIP Insulin Human Regular FOLLOW SLIDING SCALE Q6HR SC 10/19/25 00:00 Dextrose 50 ml UD IV 10/18/25 22:00 Amino Acids/ Electrolytes/ Dextrose 1,000 ml @ 41.667 mls/ hr DAILY@2200 IV 10/18/25 22:00 10/18/25 23:10 41.667 MLS/HR Phenol/Menthol 1 spr Q2HP PRN MT 10/18/25 20:15 laboratory and microbiology Laboratory Tests 10/18/25 05:12 Test 10/18/25 05:12 Range/Units Serum Glucose 85 74-106 mg/dL Problem List/Assessment/Plan Problem List/Assessment/Plan 10/19/25 afebrile, feels much better, is hungry, passing flatus, labs pending, abdomen non tender, will dc ngt and allow clear liquids. Plan discussed with: Patient YANDY JOSHUA MD Oct 19, 2025 06:51
[2025-10-19 07:09] LABS: Hematocrit 38.2 % (41.0-53.0); Hemoglobin 13.4 g/dL (13.5-17.5); Mean Corpuscular Hemoglobin 32.2 pg (28.0-32.0); Mean Corpuscular Volume 91.7 fL (80.0-100.0); Nucleated Red Blood Cells % 0.0 %
[2025-10-19 07:32] LABS: Alanine Aminotransferase 10 U/L (7-40); Albumin 4.0 g/dL (3.2-4.8); Alkaline Phosphatase 72 U/L (46-116); Anion Gap 12 (5-15); BUN/Creatinine Ratio 15.4 (10.0-20.0); Bilirubin, Total 0.6 mg/dL (0.2-1.0); Blood Urea Nitrogen 12 mg/dL (9-23); Calcium 9.2 mg/dL (8.7-10.4); Carbon Dioxide 27 mmol/L (20-31); Chloride 104 mmol/L (98-107); Magnesium 2.1 mg/dL (1.6-2.6); Sodium 143 mmol/L (136-145); Total Protein 6.8 g/dL (5.7-8.2)
[2025-10-19 07:44] LABS: Glucose 109 mg/dL (74-106); Potassium 3.5 mmol/L (3.5-5.1)
--- NOTE | 2025-10-19 12:54 | DVHPN2 ---
Subjective Doing better Less pain Tolerating clear liquid Changes from previous H/P or p: Changes Objective Vitals Vital Signs Date Time Temp Pulse Resp B/P (MAP) Pulse Ox O2 Delivery O2 Flow Rate FiO2 10/19/25 12:39 97.7 68 20 127/77 (94) 98 97.7 10/19/25 08:00 Room Air* 0 21 Intake/Output Intake and Output 10/19/25 07:00 Intake Total 850 ml Output Total 400 ml Balance 450 ml Intake Oral 0 ml IV Total 850 ml Output Urine Total 400 ml # Voids 4 General Appearance: Alert, Oriented X3, Cooperative Lungs: Clear to auscultation, Normal air movement Cardiovascular: Regular rate, Normal S1 Abdomen: Normal bowel sounds, Soft Extremities: No edema Medications Current Medications Medications Dose Ordered Sig/Aristeo Route Start Time Stop Time Status Last Admin Dose Admin Cefepime HCl 50 ml @ 12.5 mls/hr Q8HR IV 10/17/25 22:00 10/19/25 06:35 12.5 MLS/HR Metronidazole 100 ml @ 100 mls/hr Q8HR IV 10/17/25 22:00 10/19/25 05:20 100 MLS/HR Pantoprazole Sodium 40 mg DAILY IV 10/18/25 10:00 10/19/25 10:14 40 MG Ondansetron HCl 4 mg Q4HP PRN IV 10/17/25 16:30 10/17/25 16:35 4 MG Lactated Ringer's 1,000 ml @ 125 mls/hr Q8H IV 10/18/25 08:15 10/19/25 12:41 125 MLS/HR Hydromorphone HCl 0.25 mg Q4HPRN PRN IV 10/18/25 13:00 10/19/25 10:23 0.25 MG Amino Acids/ Electrolytes/ Dextrose 1,000 ml @ 41.667 mls/ hr DAILY@2200 IV 10/18/25 22:00 10/18/25 23:10 41.667 MLS/HR Phenol/Menthol 1 spr Q2HP PRN MT 10/18/25 20:15 Laboratory Results Laboratory Tests 10/19/25 05:45 Chemistry Test 10/19/25 05:45 Albumin 4.0 g/dL (3.2-4.8) Calcium Level 9.2 mg/dL (8.7-10.4) Magnesium Level 2.1 mg/dL (1.6-2.6) Phosphorus Level 2.5 mg/dL (2.4-5.1) Total Protein 6.8 g/dL (5.7-8.2) LFT Test 10/19/25 05:45 Alanine Aminotransferase (ALT) 10 U/L (7-40) Alkaline Phosphatase 72 U/L (46-116) Aspartate Amino Transferase (AST) 14 U/L (13-40) Total Bilirubin 0.6 mg/dL (0.2-1.0) Urinalysis Test 10/17/25 09:35 Urine Color Yellow (Yellow) Urine Clarity Clear (Clear) Urine pH 5.5 (5.0-9.0) Urine Specific [place] 1.023 (1.001-1.035) Urine Protein Trace (Negative) H Urine Ketones 1+ (Negative) H Urine Blood Negative /uL (Negative) Urine Nitrite Negative (Negative) Urine Bilirubin Negative (Negative) Urine Urobilinogen Normal mg/dL (Negative) Urine Leukocyte Esterase Negative /uL (Negative) Urine RBC 3 /hpf (0 - 3) Urine Microscopic WBC 1 /HPF (0-3) Urine Squamous Epithelial Cells None seen /hpf (<5) Urine Bacteria None seen /hpf (None Seen) Urine Mucus Few (None Seen) Urine Glucose Normal mg/dL (Normal) Microbiology Microbiology Date/Time Source Procedure Growth Status 10/18/25 03:03 Nose MRSA Screen - Final Complete 10/17/25 07:22 Blood Blood Culture - Preliminary NO GROWTH AFTER 48 HOURS OF INCUBATION. Resulted Assessment/Plan Assessment/Plan Acute perforated sigmoid diverticulitis Abdominal pain due to the above History of kidney stones Hepatic steatosis Plan Clear liquid diet IV antibiotics IV fluids Surgical Service is on the case Stopped the IV nutrition Pain control as needed Monitor closely Plan discussed with: Patient Date of Service: Oct 19, 2025 Billing Provider: JOSE SANCHEZ MD Common Visit Codes: [id number] INP/OBS CARE(HIGH) JOSE SANCHEZ MD Oct 19, 2025 12:54
[2025-10-20] VITALS (7 sets, daily range): BP systolic 117–144; BP diastolic 67–87; PULSE 54–69; RESP 18–20; TEMP 97.5–98.4; O2SAT 98–99
[2025-10-20] MEDS ORDERED: PREGABALIN CAPSULE 75 MG CAP PO ONE (04:15)
[2025-10-20 07:03] LABS: Hematocrit 37.3 % (41.0-53.0); Hemoglobin 13.4 g/dL (13.5-17.5); Mean Corpuscular Hemoglobin 32.6 pg (28.0-32.0); Mean Corpuscular Volume 90.9 fL (80.0-100.0); Nucleated Red Blood Cells % 0.1 %
[2025-10-20 07:11] LABS: Alanine Aminotransferase 11 U/L (7-40); Albumin 3.8 g/dL (3.2-4.8); Alkaline Phosphatase 64 U/L (46-116); Anion Gap 14 (5-15); BUN/Creatinine Ratio 11.1 (10.0-20.0); Blood Urea Nitrogen 9 mg/dL (9-23); Calcium 9.2 mg/dL (8.7-10.4); Chloride 101 mmol/L (98-107); Glucose 96 mg/dL (74-106); Magnesium 2.0 mg/dL (1.6-2.6); Potassium 3.9 mmol/L (3.5-5.1); Total Protein 6.4 g/dL (5.7-8.2)
[2025-10-20 07:12] LABS: Bilirubin, Total 0.5 mg/dL (0.2-1.0)
[2025-10-20 07:16] LABS: Carbon Dioxide 31 mmol/L (20-31); Sodium 146 mmol/L (136-145)
--- NOTE | 2025-10-20 12:43 | DVHPN2 ---
Progress Note Date Seen: Oct 20, 2025 Medical Necessity Reason Pt with a Central, PICC or Fol: No Subjective Review of Systems Patient is 39 years old male with a history of diverticulitis, renal stone, hepatic steatosis came with the abdominal pain. As per patient he started having abdominal pain 4 days before while at work, he felt like he has a pop, constant, sharp pain 6 to 7/10, no radiation. Patient denied any nausea or vomiting or fever. Patient was recently admitted on September, for acute diverticulitis with microperforation and was treated conservatively, no surgical intervention noted and was treated with IV antibiotic followed by oral antibiotic on discharge. Initial lab workup revealed leukocytosis with WBC 22.1. CT abdomen and pelvis revealed Acute perforated sigmoid diverticulitis with a few locules of air in the sigmoid mesentery and a few small pockets of disorganized fluid. PMH-diverticulitis, renal stone, hepatic steatosis PSH- right leg surgery, left jaw surgery Allergy- NKDA Personal History/ Social History- smokes 1 pack per year cigarettes for a long time, ex alcoholic, use marijuana, lives in a rental home Review of the system Cardiovascular- deny acute chest pain or shortness of breath or cough or palpitation Respiratory denies cough or short of breath or wheezing Gastrointestinal- abdominal pain, denies any rectal bleeding, nausea or vomiting Musculoskeletal-denies acute joint swelling or tenderness or redness Neurological- denies acute dysarthria, dysphagia, change in vision Psychiatry- denies depression or SI or HI Skin- denies acute rash or purpura Patient was seen today at bedside, labs and chart reviewed. Patient on liquid diet, tolerating well. Very minimum pain. Waiting for surgery for clearance for discharge. Objective vital signs Vital Sign Date Time Temp Pulse Resp B/P (MAP) Pulse Ox O2 Delivery O2 Flow Rate FiO2 10/20/25 08:55 97.5 54 20 117/73 (88) 99 97.5 10/20/25 08:00 Room Air* 0 21 Total Intake and Output 10/19/25 10/19/25 10/20/25 15:00 23:00 07:00 Intake Total 50 ml 600 ml 900 ml Balance 50 ml 600 ml 900 ml medications Current Medications Medications Dose Ordered Sig/Aristeo Route Start Time Stop Time Status Last Admin Dose Admin Cefepime HCl 50 ml @ 12.5 mls/hr Q8HR IV 10/17/25:00 10/20/25 06:48 12.5 MLS/HR Metronidazole 100 ml @ 100 mls/hr Q8HR IV 10/17/25 22:00 10/20/25 05:43 100 MLS/HR Pantoprazole Sodium 40 mg DAILY IV 10/18/25 10:00 10/20/25 08:44 40 MG Ondansetron HCl 4 mg Q4HP PRN IV 10/17/25 16:30 10/17/25 16:35 4 MG Lactated Ringer's 1,000 ml @ 125 mls/hr Q8H IV 10/18/25 08:15 10/20/25 08:44 125 MLS/HR Hydromorphone HCl 0.25 mg Q4HPRN PRN IV 10/18/25 13:00 10/19/25 21:22 0.25 MG Phenol/Menthol 1 spr Q2HP PRN MT 10/18/25 20:15 Examination General examination- awake, alert, oriented HEENT- PEERLA, no acute nasal discharge Cardiovascular- S1-S2 audible, rate and rhythm regular, no murmur Respiratory- CTAB, no wheeze or rhonchi Gastrointestinal-mild lower abdominal tenderness present, bowel sound+. Nondistended Musculoskeletal-no acute joint swelling or tenderness or redness Lower extremity- no leg edema, scar in the right leg Neurological- cranial nerves intact, no acute dysarthria or dysphagia Psychiatry- denies depression or SI or HI Skin- no acute rash or purpura laboratory and microbiology Laboratory Tests 10/20/25 05:15 10/20/25 05:12 Test 10/20/25 05:12 Range/Units Serum Glucose 96 74-106 mg/dL Microbiology Date/Time Source Procedure Growth Status 10/18/25 03:03 Nose MRSA Screen - Final Complete 10/17/25 07:22 Blood Blood Culture - Preliminary NO GROWTH AFTER 72 HOURS OF INCUBATION. Resulted Problem List/Assessment/Plan Problem List/Assessment/Plan Assessment and plan # acute intractable abdominal pain likely due to acute perforated sigmoid diverticulitis with small packet of disorganized fluid #acute perforated sigmoid diverticulitis #SIRS -CT abdominal pelvis revealed-Acute perforated sigmoid diverticulitis with a few locules of air in the sigmoid mesentery and a few small pockets of disorganized fluid. -leukocytosis with WBC 22.1 -status post surgical consult-surgery recommended for conservative management for now -NG tube suction -blood culture no growth so far -continue IV fluid as prescribed -ordered Clinimix as per pharmacy protocol -continue pain medication as prescribed -continue cefepime and metronidazole IV as prescribed -monitor vitals # history of kidney stone -follow up outpatient with primary care physician # hepatic steatosis -follow up outpatient with the primary care physician Goals of care, Code status full code ; discussed with >15 minutes PUD prophylaxis: Pantoprazole DVT prophylaxis: Lovenox Plan discussed with Dr. Minor , nursing staff, RN Total time spent on patient evaluation, chart review, assessment and plan, discussion discussion >35 minutes Plan discussed with: Patient, Other (RN) Date of Service: Oct 20, 2025 Billing Provider: JOSE MINOR MD Common Visit Codes: [id number] INP/OBS CARE(HIGH) ASHWINI MATHEWS RESIDENT Oct 20, 2025 12:43
--- NOTE | 2025-10-20 15:23 | MEDREC ---
[facility] ASP Intervention Section I [facility] ASP Intervention: Review courses of therapy (PLEASE CONSIDER DE-ESCALATION OF ANTIBIOTIC - PATIENT IS AFEBRILE, WBC IN NORMAL RANGE, EATING AND SEEMS CLINICALLY IMPROVING) ERLIN STEINER PHARMACIST Oct 20, 2025 15:23
[2025-10-21 01:00] VITALS: BP 136/77; PULSE 71; RESP 18; TEMP 98.5; O2SAT 99
[2025-10-21 05:00] VITALS: BP 120/75; PULSE 56; RESP 18; TEMP 98.3; O2SAT 98
[2025-10-21 05:53] LABS: Hematocrit 36.8 % (41.0-53.0); Hemoglobin 13.0 g/dL (13.5-17.5); Mean Corpuscular Hemoglobin 31.9 pg (28.0-32.0); Mean Corpuscular Volume 90.3 fL (80.0-100.0); Nucleated Red Blood Cells % 0.1 %
[2025-10-21 05:56] LABS: Anion Gap 8 (5-15); Carbon Dioxide 30 mmol/L (20-31); Chloride 106 mmol/L (98-107); Potassium 3.7 mmol/L (3.5-5.1); Sodium 144 mmol/L (136-145)
[2025-10-21 05:58] LABS: Calcium 8.9 mg/dL (8.7-10.4)
[2025-10-21 06:02] LABS: Glucose 96 mg/dL (74-106)
[2025-10-21 06:03] LABS: BUN/Creatinine Ratio 8.1 (10.0-20.0); Magnesium 1.9 mg/dL (1.6-2.6)
[2025-10-21 06:04] LABS: Blood Urea Nitrogen 7 mg/dL (9-23)
[2025-10-21 08:00] VITALS: PULSE 62; RESP 20; O2SAT 99
--- NOTE | 2025-10-21 08:48 | DVHPN2 ---
Progress Note Date Seen: Oct 21, 2025 Medical Necessity Reason Pt with a Central, PICC or Fol: No Objective vital signs Vital Sign Date Time Temp Pulse Resp B/P (MAP) Pulse Ox O2 Delivery O2 Flow Rate FiO2 10/21/25 05:00 98.3 56 18 120/75 (90) 98 98.3 10/20/25 20:00 Room Air* 0 21 Total Intake and Output 10/20/25 10/20/25 10/21/25 15:00 23:00 07:00 Intake Total 50 ml 650 ml 200 ml Balance 50 ml 650 ml 200 ml medications Current Medications Medications Dose Ordered Sig/Aristeo Route Start Time Stop Time Status Last Admin Dose Admin Cefepime HCl 50 ml @ 12.5 mls/hr Q8HR IV 10/17/25 22:00 10/20/25 15:46 12.5 MLS/HR Metronidazole 100 ml @ 100 mls/hr Q8HR IV 10/17/25 22:00 10/20/25 14:19 100 MLS/HR Pantoprazole Sodium 40 mg DAILY IV 10/18/25 10:00 10/20/25 08:44 40 MG Ondansetron HCl 4 mg Q4HP PRN IV 10/17/25 16:30 10/17/25 16:35 4 MG Lactated Ringer's 1,000 ml @ 125 mls/hr Q8H IV 10/18/25 08:15 10/21/25 03:17 125 MLS/HR Hydromorphone HCl 0.25 mg Q4HPRN PRN IV 10/18/25 13:00 10/20/25 20:55 0.25 MG Phenol/Menthol 1 spr Q2HP PRN MT 10/18/25 20:15 laboratory and microbiology Laboratory Tests 10/21/25 05:24 Test 10/21/25 05:24 Range/Units Serum Glucose 96 74-106 mg/dL Problem List/Assessment/Plan Problem List/Assessment/Plan 10/19/25 afebrile, feels much better, is hungry, passing flatus, labs pending, abdomen non tender, will dc ngt and allow clear liquids. 10/21/25 patient feels well, tolerating po liquid diet without pain,nausea or distension. his abdomen is still slightly tender, but soft and non distended. He is cleared for discharge with po antibiotics. I advised him to remain of full liquid diet for at least three more weeks. he is aware of the possibility of getting worse, in which he is to return to the emergency room. I would like to see him in follow up in the clinic in about one month. Plan discussed with: Patient YANDY JOSHUA MD Oct 21, 2025 08:48
--- NOTE | 2025-10-21 10:02 | DVHDSRES ---
Discharge Summary Date of Admission Resident Creating Document: ASHWINI MATHEWS RESIDENT Oct 17, 2025 at 13:52 Date of Discharge: Oct 21, 2025 Admitting Diagnosis Acute perforated diverticulitis Labs/Diagnostic Data: Laboratory Results Test 10/21/25 05:24 10/20/25 05:12 10/19/25 05:29 10/18/25 05:12 White Blood Count 5.3 10^3/uL (4.4-10.8) Red Blood Count 4.07 10^6/uL (4.5-5.90) Hemoglobin 13.0 g/dL (13.5-17.5) Hematocrit 36.8 % (41.0-53.0) Mean Corpuscular Volume 90.3 fL (80.0-100.0) Mean Corpuscular Hemoglobin 31.9 pg (28.0-32.0) Mean Corpuscular Hemoglobin Concent 35.3 g/dL (32.0-36.0) Red Cell Distribution Width 12.4 % (11.8-14.3) Platelet Count 279 10^3/uL (140-450) Mean Platelet Volume 8.1 fL (6.9-10.8) Neutrophils (%) (Auto) 64.0 % (37.0-80.0) Lymphocytes (%) (Auto) 26.5 % (10.0-50.0) Monocytes (%) (Auto) 7.1 % (0.0-12.0) Eosinophils (%) (Auto) 1.5 % (0.0-7.0) Basophils (%) (Auto) 0.9 % (0.0-2.0) Neutrophils # (Auto) 3.4 10 ^3/uL (1.6-8.6) Lymphocytes # (Auto) 1.4 10 ^3/uL (0.4-5.4) Monocytes # (Auto) 0.4 10 ^3/uL (0-1.3) Eosinophils # (Auto) 0.1 10 ^3/uL (0-0.8) Basophils # (Auto) 0 10 ^3/uL (0-0.2) Nucleated Red Blood Cells 0.1 % Sodium Level 144 mmol/L (136-145) Potassium Level 3.7 mmol/L (3.5-5.1) Chloride Level 106 mmol/L (98-107) Carbon Dioxide Level 30 mmol/L (20-31) Anion Gap 8 (5-15) Blood Urea Nitrogen 7 mg/dL (9-23) Creatinine 0.86 mg/dL (0.700-1.30) Glomerular Filtration Rate Calc 112 mL/min (>90) BUN/Creatinine Ratio 8.1 (10.0-20.0) Serum Glucose 96 mg/dL (74-106) Calcium Level 8.9 mg/dL (8.7-10.4) Phosphorus Level 3.3 mg/dL (2.4-5.1) Magnesium Level 1.9 mg/dL (1.6-2.6) Total Bilirubin 0.5 mg/dL (0.2-1.0) Aspartate Amino Transferase (AST) 18 U/L (13-40) Alanine Aminotransferase (ALT) 11 U/L (7-40) Alkaline Phosphatase 64 U/L (46-116) Total Protein 6.4 g/dL (5.7-8.2) Albumin 3.8 g/dL (3.2-4.8) POC Glucose 123 mg/dl (70-106) Hemoglobin A1c 5.2 % A1C (<5.7) Vitamin B12 Level 589 pg/mL (211-911) Vitamin D 25-Hydroxy 33.9 ng/mL (30.0-100) Folic Acid 16.82 ng/mL (>5.38) Thyroid Stimulating Hormone (TSH) 0.62 uIU/mL (0.55-4.78) Test 10/17/25 09:35 10/17/25 07:15 Urine Color Yellow (Yellow) Urine Clarity Clear (Clear) Urine pH 5.5 (5.0-9.0) Urine Specific [place] 1.023 (1.001-1.035) Urine Protein Trace (Negative) Urine Ketones 1+ (Negative) Urine Blood Negative /uL (Negative) Urine Nitrite Negative (Negative) Urine Bilirubin Negative (Negative) Urine Urobilinogen Normal mg/dL (Negative) Urine Leukocyte Esterase Negative /uL (Negative) Urine RBC 3 /hpf (0 - 3) Urine Microscopic WBC 1 /HPF (0-3) Urine Squamous Epithelial Cells None seen /hpf (<5) Urine Bacteria None seen /hpf (None Seen) Urine Mucus Few (None Seen) Urine Glucose Normal mg/dL (Normal) Lactic Acid Level 1.0 mmol/L (0.4-2.0) Other Laboratory Tests 10/21/25 05:24 Brief Hx & Hospital Course: Patient is 39 years old male with a history of diverticulitis, renal stone, hepatic steatosis came with the abdominal pain. As per patient he started having abdominal pain 4 days before while at work, he felt like he has a pop, constant, sharp pain 6 to 7/10, no radiation. Patient denied any nausea or vomiting or fever. Patient was recently admitted on September, for acute diverticulitis with microperforation and was treated conservatively, no surgical intervention noted and was treated with IV antibiotic followed by oral antibiotic on discharge. Initial lab workup revealed leukocytosis with WBC 22.1. CT abdomen and pelvis revealed Acute perforated sigmoid diverticulitis with a few locules of air in the sigmoid mesentery and a few small pockets of disorganized fluid. During hospital course patient was treated conservatively with IV fluid, NG suction and IV antibiotic Zosyn. Patient's symptoms improved, patient was put on liquid diet and tolerated well, patient passed gas and had bowel movement. Patient was cleared by surgery for discharge. Patient was advised to take liquid diet for 3 weeks, discharged on ciprofloxacin and metronidazole. Patient is advised to follow up at the [facility] clinic/PCP/surgery as recommended. Patient was hemodynamically stable on discharge General examination- awake, alert, oriented HEENT- PEERLA, no acute nasal discharge Cardiovascular- S1-S2 audible, rate and rhythm regular, no murmur Respiratory- CTAB, no wheeze or rhonchi Gastrointestinal-very minimal lower abdominal tenderness present, bowel sound+. Nondistended Musculoskeletal-no acute joint swelling or tenderness or redness Lower extremity- no leg edema, scar in the right leg Neurological- cranial nerves intact, no acute dysarthria or dysphagia Psychiatry- denies depression or SI or HI Skin- no acute rash or purpura Plan of care discussed with Dr. Minor Consults/Reason for consult [address] [address] Ph: [phone] DIAGNOSTIC IMAGING Diagnostic Imaging Report : [id number] Signed PATIENT: WARNER BERMEOCCT: [id number] UNIT: [id number] : 1985 LOC: ER ROOM / BED: / AGE / SEX: 39 / M ADM STATUS: REG ER SERVICE 1054 ORDERING PHYSICIAN: GLORIA ROONEY MD PROCEDURE(s): ABPLIV - CT AB PEL WITH IV CON ONLY REASON: abdominal pain ORDER NUMBER(s): [id number], ACCESSION NUMBER(s): [id number] Exam: CT CT AB PEL WITH IV CON ONLY History: abdominal pain COMPARISON: CT CT AB PEL WITH IV CON ONLY on DOS: 10/01/25 Technique: Multidetector spiral CT of the abdomen and pelvis was performed from lung bases to pubic symphysis. Intravenous contrast was administered during this examination. Portal venous imaging was obtained. Axial, coronal and sagittal multiplanar reformats were performed by the technologist on a separate workstation. Radiation Dose : 1. Abdomen/Pelvis: CTDIvol 24.29 mGy, DLP 1341.11 mGy*cm. Findings: Lung Bases: No acute or significant lung base finding. Normal heart size. No pleural or pericardial effusion. Liver: The liver is normal in size. No focal lesions. Normal hepatic vascular enhancement. Gallbladder and Biliary Tree: Unremarkable Spleen: Unremarkable Pancreas: The pancreas is normal in appearance without focal lesions or abnormal enhancement. Adrenal Glands: Unremarkable Kidneys: Few nonobstructing left renal calculi measuring up to 6 mm. Few small right renal cortical cyst. Bladder: Unremarkable Bowel: Multiple inflamed diverticula in the sigmoid colon with segmental wall thickening and extensive mesenteric edema. Multiple locules of free air within the sigmoid mesentery with small pockets of disorganized fluid. No rim enhancement. No obstruction or other complication. Ascites: Absent Lymphadenopathy: No mesenteric, retroperitoneal or periportal lymphadenopathy. Abdominal Wall and Mesentery: Unremarkable. Vasculature: The visualized abdominal aorta is normal in size and caliber. Abdominal and pelvic vessels demonstrate normal enhancement. Pelvic Organs: Unremarkable Musculoskeletal: No aggressive focal bony lesions, acute fractures or dislocation. IMPRESSION: Acute perforated sigmoid diverticulitis with a few locules of air in the sigmoid mesentery and a few small pockets of disorganized fluid. Radiation optimization: All CT scans at this facility use at least one of these dose optimization techniques: automated exposure control mA and/or kV adjustment per patient size (includes targeted exams where dose is matched to clinical indication) or iterative reconstruction. ATED BY: FELICITA CORCORAN MD DICTATED DATE/TIME: 10/17/251211 SIGNED BY: FELICITA CORCORAN MD SIGNED DATE/TIME: 10/17/251211 CC: [address] [address] Ph: [phone] DIAGNOSTIC IMAGING Diagnostic Imaging Report : [id number] Signed PATIENT: WARNER BERMEOCCT: [id number] UNIT: [id number] : 1985 LOC: OVERFLOW ROOM / BED: [facility] / A AGE / SEX: 39 / M ADM STATUS: ADM IN SERVICE 1450 ORDERING PHYSICIAN: CHRISTIAN QUEVEDO RESIDENT PROCEDURE(s): CXR1 - CHEST XRAY 1 VIEW REASON: NGT placement ORDER NUMBER(s): [id number], ACCESSION NUMBER(s): [id number] CHEST RADIOGRAPH Indication: NGT placement Technique: Single frontal view of the chest was obtained COMPARISON: None FINDINGS: NG tube within the proximal stomach. Lungs and pleural spaces are clear. Cardiac silhouette and steph are within normal limits. Bones and soft tissues demonstrate no significant abnormality. IMPRESSION: NG tube within the proximal stomach. ATED BY: FELICITA CORCORAN MD DICTATED DATE/TIME: 10/17/251827 SIGNED BY: FELICITA CORCORAN MD SIGNED DATE/TIME: 10/17/251827 CC: Operations or Procedures Patient: CARTER BERMEO Acct: [id number] : 1985 Loc: [facility] Age/Sex: 39/M [id number] Progress Note Date Seen: Oct 21, 2025 Medical Necessity Reason Pt with a Central, PICC or Fol: No Objective vital signs Vital Sign Date Time Temp Pulse Resp B/P (MAP) Pulse Ox O2 Delivery O2 Flow Rate FiO2 10/21/25 05:00 98.3 56 18 120/75 (90) 98 98.3 10/20/25 20:00 Room Air* 0 21 Total Intake and Output 10/20/25 10/20/25 10/21/25 15:00 23:00 07:00 Intake Total 50 ml 650 ml 200 ml Balance 50 ml 650 ml 200 ml medications Current Medications Medications Dose Ordered Sig/Aristeo Route Start Time Stop Time Status Last Admin Dose Admin Cefepime HCl 50 ml @ 12.5 mls/hr Q8HR IV 10/17/25 22:00 10/20/25 15:46 12.5 MLS/HR Metronidazole 100 ml @ 100 mls/hr Q8HR IV 10/17/25 22:00 10/20/25 14:19 100 MLS/HR Pantoprazole Sodium 40 mg DAILY IV 10/18/25 10:00 10/20/25 08:44 40 MG Ondansetron HCl 4 mg Q4HP PRN IV 10/17/25 16:30 10/17/25 16:35 4 MG Lactated Ringer's 1,000 ml @ 125 mls/hr Q8H IV 10/18/25 08:15 10/21/25 03:17 125 MLS/HR Hydromorphone HCl 0.25 mg Q4HPRN PRN IV 10/18/25 13:00 10/20/25 20:55 0.25 MG Phenol/Menthol 1 spr Q2HP PRN MT 10/18/25 20:15 laboratory and microbiology Laboratory Tests 10/21/25 05:24 Test 10/21/25 05:24 Range/Units Serum Glucose 96 74-106 mg/dL Problem List/Assessment/Plan Problem List/Assessment/Plan 10/19/25 afebrile, feels much better, is hungry, passing flatus, labs pending, abdomen non tender, will dc ngt and allow clear liquids. 10/21/25 patient feels well, tolerating po liquid diet without pain,nausea or distension. his abdomen is still slightly tender, but soft and non distended. He is cleared for discharge with po antibiotics. I advised him to remain of full liquid diet for at least three more weeks. he is aware of the possibility of getting worse, in which he is to return to the emergency room. I would like to see him in follow up in the clinic in about one month. Plan discussed with: Patient YANDY JOSHUA MD Oct 21, 2025 08:48 E/M VISIT PERFORMED BY: TRANSCRIBED BY:YANDY JOSHUA MD TRANSCRIBED DATE/TIME:10/21/25 0848 ELECTRONICALLY SIGNED BY:YANDY JOSHUA MD 10/21/25 0848 ELECTRONICALLY CO-SIGNED BY: Patient Name: CARTER BERMEO Acct: [id number] [facility] Attending Physician: ALEXYS FREGOSO [facility] Loc: OVERFLOW Unit: [id number] CONSULTATION REPORT . ................................................................................ ............................................................................... Date of service: Oct 17, 2025 Family History: Diabetes mellitus G8 MOTHER Allergies: Coded Allergies: NO KNOWN ALLERGIES (Unverified , 02/27/13) Home Meds Active Scripts Ondansetron Odt 4MG Tab (ZOFRAN PO) 4 Mg Tb, 4 MG PO TIDP PRN, #25 TAB 0 Refills ODT TAB-DISSOLVE IN MOUTH, THEN SWALLOW Prov:LATRELL AJ MD 10/04/25 Hydrocodone-Acetaminophen (Hydrocodone Bitartrate/AC 5-325 mg) 1 Tab Tab, 1 TAB PO TIDP PRN for 7 Days, #21 TAB 0 Refills Prov:LATRELL AJ MD 10/04/25 Docusate Sodium (Colace) 100 Mg Cap, 1 CAP PO BID, #60 CAP Prov:LATRELL AJ MD 10/04/25 Amoxicillin & Pot Clavulanate (AUGMENTIN TABLET) 875 Mg Tb, 875 MG PO BID for 5 Days, #10 TAB Prov:LATRELL AJ MD 10/04/25 Current Medications Current Medications Medications (Trade) Dose Ordered Sig/Aristeo Route PRN Reason Start Time Stop Time Status Last Admin Cefepime HCl 50 ml @ 12.5 mls/hr Q8HR IV 10/17/25 14:00 UNV Metronidazole 100 ml @ 100 mls/hr Q8HR IV 10/17/25 14:00 UNV Pantoprazole Sodium (Protonix) 40 mg DAILY IV 10/18/25 10:00 UNV Ondansetron HCl (Zofran) 4 mg Q4HP PRN IV NAUSEA / VOMITING 10/17/25 14:00 UNV Morphine Sulfate 2 mg Q4HPRN PRN IV SEVERE PAIN (7-10 PAIN SCALE) 10/17/25 14:00 UNV Vital Signs Vital Signs Date Time Temp Pulse Resp B/P (MAP) Pulse Ox O2 Delivery O2 Flow Rate FiO2 10/17/25 14:07 94 Room Air* 0 21 10/17/25 14:01 98 18 10/17/25 13:22 158/75 10/17/25 13:00 98.9 98.9 Labs/Diagnostic Data Labs Test 10/17/25 09:35 10/17/25 07:15 Range/Units Urine Color Yellow Yellow Urine Clarity Clear Clear Urine pH 5.5 5.0-9.0 Urine Specific [place] 1.023 1.001-1.035 Urine Protein Trace H Negative Urine Ketones 1+ H Negative Urine Blood Negative Negative /uL Urine Nitrite Negative Negative Urine Bilirubin Negative Negative Urine Urobilinogen Normal Negative mg/dL Urine Leukocyte Esterase Negative Negative /uL Urine RBC 3 0 - 3 /hpf Urine Microscopic WBC 1 0-3 /HPF Urine Squamous Epithelial Cells None seen <5 /hpf Urine Bacteria None seen None Seen /hpf Urine Mucus Few None Seen Urine Glucose Normal Normal mg/dL White Blood Count 22.1 H 4.4-10.8 10^3/uL Red Blood Count 5.04 4.5-5.90 10^6/uL Hemoglobin 16.3 13.5-17.5 g/dL Hematocrit 46.2 41.0-53.0 % Mean Corpuscular Volume 91.6 80.0-100.0 fL Mean Corpuscular Hemoglobin 32.3 H 28.0-32.0 pg Mean Corpuscular Hemoglobin Concent 35.2 32.0-36.0 g/dL Red Cell Distribution Width 13.0 11.8-14.3 % Platelet Count 413 140-450 10^3/uL Mean Platelet Volume 8.1 6.9-10.8 fL Neutrophils (%) (Auto) 87.8 H 37.0-80.0 % Lymphocytes (%) (Auto) 5.4 L 10.0-50.0 % Monocytes (%) (Auto) 6.3 0.0-12.0 % Eosinophils (%) (Auto) 0.3 0.0-7.0 % Basophils (%) (Auto) 0.2 0.0-2.0 % Neutrophils # (Auto) 19.4 H 1.6-8.6 10 ^3/uL Lymphocytes # (Auto) 1.2 0.4-5.4 10 ^3/uL Monocytes # (Auto) 1.4 H 0-1.3 10 ^3/uL Eosinophils # (Auto) 0.1 0-0.8 10 ^3/uL Basophils # (Auto) 0 0-0.2 10 ^3/uL Nucleated Red Blood Cells 0.0 % Sodium Level 140 136-145 mmol/L Potassium Level 4.1 3.5-5.1 mmol/L Chloride Level 106 98-107 mmol/L Carbon Dioxide Level 25 20-31 mmol/L Anion Gap 9 5-15 Blood Urea Nitrogen 12 9-23 mg/dL Creatinine 0.94 0.700-1.30 mg/dL Glomerular Filtration Rate Calc 104 >90 mL/min BUN/Creatinine Ratio 12.8 10.0-20.0 Serum Glucose 105 74-106 mg/dL Lactic Acid Level 1.0 0.4-2.0 mmol/L Calcium Level 10.2 8.7-10.4 mg/dL Assessment 39 year old male with had Dx of Diverticulitis about 2 and 1/2 months ago and was supposed to f/u with which he did not do, in last few daqys pain got worse and after eating a large meal pain became excruciating and he caqme to this emergency room. his abdomen is sooft, non [id number], tender in the suprapubic area, no rebound no guarding. WBC elevated. will observe , no indication for emergency operation, explained tro patient and answered all his questions. Plan discussed with: Patient, Other YANDY JOSHUA MD Oct 17, 2025 14:27 DICTATED BY:YANDY JOSHUA MD DICTATED DATE/TIME:10/17/25 1427 ELECTRONICALLY SIGNED BY:YANDY JOSHUA MD 10/17/25 1427 ELECTRONICALLY CO-SIGNED BY: Condition at Discharge: Stable Final Diagnosis/Problems List # acute intractable abdominal pain likely due to acute perforated sigmoid diverticulitis with small packet of disorganized fluid #acute perforated sigmoid diverticulitis #SIRS # history of kidney stone # hepatic steatosis Discharge Disposition: Home Discharge Instruct/Medications Diet: See Comment Diet comment: Full liquid diet for 3 weeks Activity: Light activity Activity comment: No weight bearing/lifting Follow Up/Referral: Discharge Clinic PCP Surgery Medications: As prescribed Scheduled Amoxicillin & Pot Clavulanate (Augmentin Tablet), 875 MG PO BID Ciprofloxacin Hcl (Ciprofloxacin Hcl), 500 MG PO BID Docusate Sodium (Colace), 1 CAP PO BID Ibuprofen (Ibuprofen), 1 TAB PO Q6HPRN Metronidazole (Flagyl), 1 TAB PO TID Pantoprazole Sodium Sesquihydr (Pantoprazole Sodium), 40 MG PO DAILY Scheduled PRN Hydrocodone-Acetaminophen (Hydrocodone Bitartrate/AC 5-325 mg), 1 TAB PO TIDP PRN Ondansetron Odt 4MG Tab (Zofran Po), 4 MG PO TIDP PRN Discharge Statement: "Patient was advised to return to the ER or call 911 if any headaches, dizziness, shortness of breath, chest pain, abdominal pain, bleeding, fevers, or worsening of medical condition. Patient was counseled about treatment plan, medications, possible side effects, patientverbalized understanding. All questions were answered to the best of my ability. This discharge took greater then 30 minutes in planning, reviewing documentation, counseling the patient, and discussing with other team members." ASSESSMENT ASSESSMENT Assessment Date of Service: Oct 21, 2025 Billing Provider: JOSE MINOR MD Common Visit Codes: 13086-ABB/OBS DISCH DAY >30min ASHWINI MATHEWS RESIDENT Oct 21, 2025 10:02 CHRISTIAN QUEVEDO RESIDENT Oct 22, 2025 14:35
[2025-10-21] MEDS ORDERED: METR-344 PO (10:15)
[2025-10-21] MEDS ORDERED: CIPR500T4 PO (10:15)
[2025-10-21] MEDS ORDERED: IBUP-1453 PO (10:16)
[2025-10-21] MEDS ORDERED: PANT40T PO (10:16)
[2025-10-21 10:25] VITALS: TEMP 36.8
== END 2025-10-21 11:34 | disposition home or self-care (01) | DRG 244 ==
LOC: ER 06:37 → OVERFLOW 13:52 → WEST WING 10-18 02:19
PROVIDERS: ADMIT Internal Medicine Geriatric Medicine; ATTEND Internal Medicine Geriatric Medicine
DX: K57.20 Diverticulitis of large intestine with perforation and abscess without bleeding (principal); F17.210 Nicotine dependence, cigarettes, uncomplicated; R65.10 Systemic inflammatory response syndrome (SIRS) of non-infectious origin without acute organ dysfunction; K76.0 Fatty (change of) liver, not elsewhere classified; Z87.442 Personal history of urinary calculi; Z83.3 Family history of diabetes mellitus
CPT/HCPCS: 36415; 71045; 74177; 80048; 80053; 81001; 82306; 82607; 82746; 82962; 83036; 83605; 83735; 84100; 84443; 85025; 87040; 87081; 96361; 96374; 96375; G0378; J2405; J2470; J3490